=== PATIENT | male | born 1955 | race Caucasian/White ===

== ENCOUNTER 2017-10-24 09:33 | Emergency (ER) | payer BC ==
[2017-10-24 09:43] VITALS: BP 161/90
[2017-10-24] MEDS ORDERED: Sodium Chloride 0.9% 10 ML Syringe FLUSH PRN (09:55)
--- NOTE | 2017-10-24 10:04 | EDM.PDOC ---
ED HPI GENERAL MEDICAL PROBLEM - General Chief Complaint: Chest Pain Stated Complaint: Chest pain Time Seen by Provider: 10/24/17 09:43 Source of Information: Reports: Patient, RN Notes Reviewed History Limitations: Reports: No Limitations - History of Present Illness INITIAL COMMENTS - FREE TEXT/NARRATIVE: 62 year old male presents to the ED with complaints of left sided chest pain. He awoke around 5am with the pain. The pain did not wake him up. He said the pain was mild when he awakened. He took 1 baby aspirin and said the symptoms resolved in about 30-45 minutes. About an hour ago the symptoms returned and are more severe. He took an additional baby aspirin with no improvement. The pain is located to his left, anteriorlateral chest wall and does not radiate. He has no associated diaphoresis, nausea, vomiting. The pain is worse with deep breathing. The pain is not reproducible with palpation. No identifiable aggravating or alleviating factors. Denies SOB, cough, or dyspnea with exertion. He reports cold symptoms a week ago with mild cough. No notable fevers. He has chronic swelling to his ankles and feet. He says this has improved as of recently. He denies unilateral or bilateral calf pain, swelling, erythema, or pain. He denies history of blood clots. He is not on any blood thinners. He denies cardiac history. He denies history of PR. He denies smoking history. He has a history of hypertension but was taken off BP meds and BP has been running in the 130s/80s. He denies history of high cholesterol. He is not a diabetic. 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 He is currently undergoing treatment. He had radiation about 1 month ago and was treated with dexamethasone for the brain lesion. Denies immediate family history of PR or stroke. 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 [No Known Home Meds] 10/24/17 [History] Past Medical History Cardiovascular History: Reports: Hypertension Respiratory History: Reports: Bronchitis, Recurrent Gastrointestinal History: Reports: Hemorrhoids Genitourinary History: Reports: Other (See Below) Other Genitourinary History: LEFT KIDNEY REMOVED DUE TO CANCER Oncologic (Cancer) History: Reports: Renal - Past Surgical History HEENT Surgical History: Reports: LASIK Male Surgical History: Reports: Nephrectomy (Left) Social & Family History - Family History Other Cardiac Family History: [place] - alive with HTN Other Family History: FA - of prostate cancer Other Oncologic Family History: FA - of bladder cancer - Tobacco Use Smoking Status *Q: Never Smoker - Recreational Drug Use Recreational Drug Use: No - Living Situation & Occupation Living situation: Reports: with Family Occupation: Employed ED ROS GENERAL - Review of Systems Review Of Systems: See Below Constitutional: Reports: No Symptoms. Denies: Fever, Chills, Diaphoresis Respiratory: Reports: Pleuritic Chest Pain. Denies: Shortness of Breath, Cough , Sputum, Hemoptysis Cardiovascular: Reports: Chest Pain, Edema. Denies: Blood Pressure Problem, Dyspnea on Exertion, Lightheadedness, Syncope GI/Abdominal: Denies: Abdominal Pain, Diarrhea, Nausea, Vomiting Neurological: Reports: No Symptoms. Denies: Headache ED EXAM, GENERAL - Physical Exam Exam: See Below Exam Limited By: No Limitations General Appearance: Alert, No Apparent Distress, Anxious, Obese Respiratory/Chest: No Respiratory Distress, No Accessory Muscle Use, Chest Non- Tender, Decreased Breath Sounds. No: Crackles, Rales, Rhonchi, Wheezing, Stridor Cardiovascular: Normal Peripheral Pulses, Regular Rate, Rhythm, No Murmur, Other (2-3+ edema to bilateral ankles and feet. ) GI/Abdominal: Normal Bowel Sounds, Soft, Non-Tender, No Distention, No Abnormal Bruit Extremities: Pedal Edema (2-3+ bilateral ankles and feet ), Other (no pain, erythema or swelling to bilateral calf. Lower extremities are symmetrical ). No : Barrera's Sign, Increased Warmth, Redness Neurological: Alert, Oriented, Normal Cognition Skin Exam: Warm, Dry, Intact EKG INTERPRETATION EKG Date: 10/24/17 Time: 09:40 Rhythm: NSR Rate (Beats/Min): 97 Cost: Normal P-Wave: Present QRS: Normal ST-T: Normal QT: Normal EKG Interpretation Comments: EKG read by Dr. Burt. NSR. No evidence of acute ischemia or arrhythmia Course - Vital Signs Last Recorded V/S: Last Vital Signs Temp 97.0 F 10/24/17 09:39 Pulse 92 10/24/17 12:17 Resp 18 10/24/17 09:39 BP 161/90 H 10/24/17 09:39 Pulse Ox 97 10/24/17 12:17 - Orders/Labs/Meds Orders: Active Orders 24 hr Category Date Time Status Cardiac Monitoring [RC] . DIRECTED Care 10/24/17 09:55 Active Orthostatic Vital Signs [RC] ASDIRECTED Care 10/24/17 11:35 Active Peripheral IV Care [RC] . DIRECTED Care 10/24/17 09:56 Active CXR [Chest 1V Frontal] [CR] Stat Exams 10/24/17 10:00 Taken Chest PE [Ang Chest] [CT] Stat Exams 10/24/17 10:23 Taken Aspirin Med 10/25/17 09:00 Active 162 mg PO DAILY Sodium Chloride 0.9% [Normal Saline] 100 ml Med 10/24/17 11:00 Active IV ASDIRECTED Sodium Chloride 0.9% [Saline Flush] Med 10/24/17 09:55 Active 10 ml FLUSH ASDIRECTED PRN Peripheral IV Insertion Adult [OM.PC] Stat Oth 10/24/17 09:55 Ordered Medication Orders Aspirin (Aspirin) 162 mg PO DAILY [facility] Last Admin: 10/24/17 10:28 Dose: 162 mg Sodium Chloride (Normal Saline) 100 mls @ 60 mls/hr IV ASDIRECTED FLOWER Last Admin: 10/24/17 11:08 Dose: 60 mls/hr Sodium Chloride (Saline Flush) 10 ml FLUSH ASDIRECTED PRN PRN Reason: Keep Vein Open Last Admin: 10/24/17 10:28 Dose: 10 ml Labs: Laboratory Tests 10/24/17 10/24/17 10/24/17 Range/Units 09:50 09:50 09:50 WBC 5.24 (4.23-9.07) K/mm3 RBC 3.84 L (4.63-6.08) M/mm3 Hgb 11.3 L (13.7-17.5) gm/L Hct 34.2 L (40.1-51.0) % MCV 89.1 (79.0-92.2) fl MCH 29.4 (25.7-32.2) pg MCHC 33.0 (32.2-35.5) g/dl RDW Std Deviation 46.1 H (35.1-43.9) fL Plt Count 343 H (163-337) K/mm3 MPV 8.6 L (9.4-12.3) fl Neutrophils % (Manual) 67 H (40-60) % Band Neutrophils % 1 (0-10) % Lymphocytes % (Manual) 18 L (20-40) % Atypical Lymphs % 0 % Monocytes % (Manual) 12 H (2-10) % Eosinophils % (Manual) 2 (0.8-7.0) % Basophils % (Manual) 0 L (0.2-1.2) Platelet Estimate Adequate RBC Morph Comment Normal D-Dimer, Quantitative 1.89 H (0.19-0.59) mg/L Sodium 145 (136-145) mEq/L Potassium 3.3 L (3.5-5.1) mEq/L Chloride 108 H (98-107) mEq/L Carbon Dioxide 27 (21-32) mEq/L Anion Gap 13.3 (5-15) BUN 18 (7-18) mg/dL Creatinine 1.2 (0.7-1.3) mg/dL Est Cr Clr Drug Dosing 63.83 mL/min Estimated GFR (MDRD) > 60 (>60) mL/min BUN/Creatinine Ratio 15.0 (14-18) Glucose 165 H (80-115) mg/dL Calcium 8.9 (8.5-10.1) mg/dL Total Bilirubin 0.4 (0.2-1.0) mg/dL AST 22 (15-37) U/L ALT 26 (16-63) U/L Alkaline Phosphatase 66 (46-116) U/L Troponin I < 0.017 (0.00-0.056) ng/mL C-Reactive Protein < 0.2 (<1.0) mg/dL Total Protein 6.7 (6.4-8.2) g/dl Albumin 2.9 L (3.4-5.0) g/dl Globulin 3.8 gm/dL Albumin/Globulin Ratio 0.8 L (1-2) 11/25/17 Range/Units 13:05 WBC (4.23-9.07) K/mm3 RBC (4.63-6.08) M/mm3 Hgb (13.7-17.5) gm/L Hct (40.1-51.0) % MCV (79.0-92.2) fl MCH (25.7-32.2) pg MCHC (32.2-35.5) g/dl RDW Std Deviation (35.1-43.9) fL Plt Count (163-337) K/mm3 MPV (9.4-12.3) fl Neutrophils % (Manual) (40-60) % Band Neutrophils % (0-10) % Lymphocytes % (Manual) (20-40) % Atypical Lymphs % % Monocytes % (Manual) (2-10) % Eosinophils % (Manual) (0.8-7.0) % Basophils % (Manual) (0.2-1.2) Platelet Estimate RBC Morph Comment D-Dimer, Quantitative (0.19-0.59) mg/L Sodium (136-145) mEq/L Potassium (3.5-5.1) mEq/L Chloride (98-107) mEq/L Carbon Dioxide (21-32) mEq/L Anion Gap (5-15) BUN (7-18) mg/dL Creatinine (0.7-1.3) mg/dL Est Cr Clr Drug Dosing mL/min Estimated GFR (MDRD) (>60) mL/min BUN/Creatinine Ratio (14-18) Glucose (80-115) mg/dL Calcium (8.5-10.1) mg/dL Total Bilirubin (0.2-1.0) mg/dL AST (15-37) U/L ALT (16-63) U/L Alkaline Phosphatase (46-116) U/L Troponin I < 0.017 (0.00-0.056) ng/mL C-Reactive Protein (<1.0) mg/dL Total Protein (6.4-8.2) g/dl Albumin (3.4-5.0) g/dl Globulin gm/dL Albumin/Globulin Ratio (1-2) Meds: Medications Generic Name Dose Route Start Last Admin Trade Name Freq PRN Reason Stop Dose Admin Aspirin 162 mg 10/25/17 09:00 10/24/17 10:28 Aspirin PO 162 mg DAILY FLOWER Administration Sodium Chloride 100 mls @ 60 mls/hr 10/24/17 11:00 10/24/17 11:08 Normal Saline IV 60 mls/hr ASDIRECTED FLOWER Administration Sodium Chloride 10 ml 10/24/17 09:55 10/24/17 10:28 Saline Flush FLUSH 10 ml ASDIRECTED PRN Administration Keep Vein Open Discontinued Medications Generic Name Dose Route Start Last Admin Trade Name Lino PRN Reason Stop Dose Admin Aspirin Confirm 10/24/17 10:14 10/24/17 10:28 Aspirin Administered 10/24/17 10:15 Not Given Dose 162 mg .ROUTE .STK-MED ONE Iopamidol 100 ml 10/24/17 10:51 10/24/17 11:08 Isovue-370 (76%) IVPUSH 10/24/17 10:52 100 ml ONETIME ONE Administration Sodium Chloride 10 ml 10/24/17 10:51 10/24/17 11:08 Saline Flush FLUSH 10/24/17 10:52 10 ml ONETIME ONE Administration - Re-Assessments/Exams Free Text/Narrative Re-Assessment/Exam: CBC reveals WBC of 5,000 and no bandemia. H&H 11 and 34. CRP WNL. CMP: Na 145, K 3.3, Cl 108, BUN 18, creatinine 1.2, glucose 165. LFTs WNL. Initial troponin WNL. EKG normal. 10/24/17 10:25 D-dimer came back positive, CT angio ordered to evaluate for PE. 1200 CT angio read by [facility], impression: 1. No pulmonary thromboembolic disease 2. Hematogenous pulmonary metastases 3. A couple of small areas of pneumonitis are probably present 4. Liver and adrenal metastases are probably present. Discussed with Dr. Burt. She feels the pneumonitis is likely related to the mets rather than infectious as the patient has no clinical findings (fever, cough, tachycardia) to indicate infection. She does not recommend treating with antibiotics. She recommends repeat 3 hour troponin and discharge if WNL. 10/24/17 14:10 3 hour troponin is WNL. Patient notified of results. He was educated on return precautions. He is to f/u with his PCP early next week and his Oncologist as scheduled. Will have his records from today sent to both providers. 10/24/17 14:34 Departure - Departure Time of Disposition: 14:14 Disposition: Home, Self-Care 01 Condition: Good Clinical Impression: Pneumonitis Chest pain Qualifiers: Chest pain type: unspecified Qualified Code(s): R07.9 - Chest pain, unspecified Renal cell carcinoma Qualifiers: Laterality: unspecified laterality Qualified Code(s): C64.9 - Malignant neoplasm of unspecified kidney, except renal pelvis Instructions: Pneumonitis, Chest Pain Observation Referrals: Aliya Russell, CLINICAL CYTOPATHOLOGIST [Primary Care Provider] - Forms: ED Department Discharge Additional Instructions: Tylenol or Ibuprofen as needed for pain Rest Return to ER with new or worsening symptoms or with additional concerns Follow-up with Renetta Russell in [place] early next week for recheck Follow-up with your Oncologist as scheduled - My Orders Last 24 Hours: My Active Orders 10/24/17 09:55 Cardiac Monitoring [RC] . DIRECTED Sodium Chloride 0.9% [Saline Flush] 10 ml FLUSH ASDIRECTED PRN Peripheral IV Insertion Adult [OM.PC] Stat 10/24/17 09:56 Peripheral IV Care [RC] . DIRECTED 10/24/17 10:00 CXR [Chest 1V Frontal] [CR] Stat 10/24/17 10:23 Chest PE [Ang Chest] [CT] Stat 10/24/17 11:00 Sodium Chloride 0.9% [Normal Saline] 100 ml IV ASDIRECTED 10/24/17 11:35 Orthostatic Vital Signs [RC] ASDIRECTED 10/25/17 09:00 Aspirin 162 mg PO DAILY - Assessment/Plan Last 24 Hours: My Active Orders 10/24/17 09:55 Cardiac Monitoring [RC] . DIRECTED Sodium Chloride 0.9% [Saline Flush] 10 ml FLUSH ASDIRECTED PRN Peripheral IV Insertion Adult [OM.PC] Stat 10/24/17 09:56 Peripheral IV Care [RC] . DIRECTED 10/24/17 10:00 CXR [Chest 1V Frontal] [CR] Stat 10/24/17 10:23 Chest PE [Ang Chest] [CT] Stat 10/24/17 11:00 Sodium Chloride 0.9% [Normal Saline] 100 ml IV ASDIRECTED 10/24/17 11:35 Orthostatic Vital Signs [RC] ASDIRECTED 10/25/17 09:00 Aspirin 162 mg PO DAILY
[2017-10-24] MEDS ORDERED: Aspirin 81 MG Tab.Chew ONE (10:14)
[2017-10-24] MEDS ORDERED: Iopamidol 755 Mg/ML 100 ML Bottle IVPUSH ONE (10:51)
[2017-10-24] MEDS ORDERED: Sodium Chloride 0.9% 10 ML Syringe FLUSH ONE (10:51)
[2017-10-24] MEDS ORDERED: Sodium Chloride 0.9% 100 ML IV SCH (11:00)
[2017-10-25] MEDS ORDERED: Aspirin 81 MG Tab.Chew PO SCH (09:00)
--- NOTE | 2017-10-26 16:32 | CT ---
CT chest Technique: Multiple axial sections through the chest were obtained. Study performed as a pulmonary angiogram protocol. Comparison: Prior chest x-ray performed on the same day (10:01 AM). Prior chest CT of 11/28/10. Previous abdominal and pelvic CT exam of 11/30/15 is available. Findings: No findings of pulmonary embolism are seen. Multiple pulmonary nodules are seen adjacent to both hilum. Findings are highly suspicious for hematogenous metastasis. Slight atelectasis is seen posteriorly within both lung bases. Mild parenchymal density within the left base and left upper lung are seen which could represent small areas of pneumonia or scarring. Small lymph nodes are seen within the right hilum and within the paratracheal regions which are felt to be within normal limits at this time. Low-density lesions are seen within the liver as well as a hyperenhancing lesion within the left lobe of the liver. Low density lesions are suspicious for liver metastatic disease. Several small soft tissue nodules adjacent to the spleen are seen compatible with accessory splenic tissue. Partially visualized left adrenal mass is noted. Soft tissue nodule identified next to the right kidney measuring 1.5 cm. Small left-sided pleural effusion is seen. Degenerative spurring is noted within the spine. Impression: 1. Multiple nodular densities around both hilar regions compatible with hematogenous metastasis. These are an interval change from prior chest CT. No findings of pulmonary embolism are seen. 2. Several small mediastinal as well as right hilar lymph node which measure within normal limits at this time. 3. Several low density lesions which appear stable from prior CT abdomen and pelvis exam likely representing stable liver metastasis. Hyperenhancing lesion seen within the upper left lobe which is not identified on prior CT exam. This finding may represent a hyperenhancing metastasis although flash filling of a hemangioma is also within the differential. 4. Left adrenal mass which is an interval change from previous exam. 5. 1.5 cm soft tissue nodule next to the right kidney most likely representing metastatic lesion which is not seen on prior study. 6. Patchy increased density within the left base and left upper lung either due to scarring or possibly minimal areas of pneumonia if patient has infectious symptoms. Other incidental findings. Diagnostic code #9 I agree with preliminary report issued by [facility] ([facility] report finalized on 10/24/17, 12:50 PM Central Time)
--- NOTE | 2017-10-26 16:33 | CR ---
Chest: Portable view of the chest was obtained. Comparison: Previous chest x-ray of 07/18/14. Heart size and mediastinum are normal. Lungs are clear. Bony structures show degenerative spurring within the spine. Impression: 1. Nothing acute is identified on portable chest x-ray. Diagnostic code #1
== END 2017-10-24 14:30 | disposition home or self-care (01) ==
LOC: JD.ED 09:33
DX: J18.9 Pneumonia, unspecified organism (principal); C64.9 Malignant neoplasm of unspecified kidney, except renal pelvis; R07.9 Chest pain, unspecified; I10 Essential (primary) hypertension; Z88.0 Allergy status to penicillin
CPT/HCPCS: 36415; 71010; 71275; 80053; 84484; 85025; 85379; 86140; 99285; A9270; J7030; J7050; Q9967; 93010; 99284

== ENCOUNTER 2018-01-07 14:17 | Emergency (ER) | payer BC ==
[2018-01-07 14:55] VITALS: BP 173/96
[2018-01-07] MEDS ORDERED: Sodium Chloride 0.9% 10 ML Syringe FLUSH PRN (17:12)
[2018-01-07] MEDS ORDERED: Sodium Chloride 0.9% 1,000 ML IV ONE (17:13)
[2018-01-07] MEDS ORDERED: Iopamidol 612 MG/ML 50 ML SDV IVPUSH ONE (17:22)
[2018-01-07] MEDS: Sodium Chloride 0.9% 10 ML Syringe FLUSH PRN ×2 (17:43→17:50)
[2018-01-07] MEDS ORDERED: HYDROmorphone 1 MG/ML Syringe IVPUSH ONE (17:54)
--- NOTE | 2018-01-07 18:31 | CT ---
Head CT (without and with contrast) Technique: Multiple axial sections through the brain were obtained. Intravenous contrast was not utilized. Findings: Diffuse low density is identified within the left occipital lobe and posterior left parietal lobe. Uncertain if this represents cytotoxic edema or infarct. Infarct seems a little less likely as there is some cortical sparing being seen. Edema is also felt more likely as there is mild midline shift being seen by about 9 mm. No intracranial hemorrhage is seen. Sulci are slightly effaced over the left convexity due to the edema. No abnormal enhancement is identified. Impression: 1. Low density within the left posterior parietal and occipital region. As mentioned above, this is most likely due to cytotoxic edema rather than infarct as there is areas of cortical sparing. No abnormal enhancement is seen which is somewhat unexpected. Midline shift is seen by about 9 mm. MRI with contrast is suggested to further evaluate as intracranial metastatic disease needs to be excluded. 2. No evidence of intracranial hemorrhage. Diagnostic code #9
--- NOTE | 2018-01-07 18:37 | EDM.PDOC ---
ED HPI GENERAL MEDICAL PROBLEM - General Chief Complaint: Fever Stated Complaint: VISION ISSUES-R EYE IS WORSE/CHEMO X3DAYS AGO Time Seen by Provider: 01/07/18 16:35 Source of Information: Reports: Patient History Limitations: Reports: No Limitations - History of Present Illness INITIAL COMMENTS - FREE TEXT/NARRATIVE: 62-year-old male presents for evaluation and treatment of fevers, headaches, body aches and decreased vision to the right eye. Patient reports he the past medical history renal cell carcinoma. Had an nephrectomy in 2009. Is currently seeing Dr. Alonso and Dr. Glynn in [place] for chemotherapy. He started on chemotherapy about 3 weeks ago. Currently on Vervoy and Opdivo. Reports his last chemotherapy was on Thursday. Reports on Thursday he developed decreased vision to the right eye. Is also complaining of some headaches and body aches. He states he had some diarrhea earlier but this has since resolved with Imodium. Per his daughter he is more confused than normal. Patient also reports he feels more confused than normal. He does not wear glasses or contacts. Patient's reports that he did have a brain tumor. Is unclear if this was metastasis or primary brain tumor. He was seen in [place] for what sounds like radiation. - Related Data Allergies Allergy/AdvReac Type Severity Reaction Status Date / Time Penicillins Allergy Unknown Cannot Verified 01/07/18 14:55 Remember Home Meds: Home Meds Aspirin [Adult Low Dose Aspirin EC] 81 mg PO DAILY 01/07/18 [History] Lisinopril [Lisinopril] 10 mg PO DAILY 01/07/18 [History] Propranolol HCl 60 mg PO BID 01/07/18 [History] SUMAtriptan [Imitrex] 50 mg PO DAILY PRN 01/07/18 [History] Past Medical History Cardiovascular History: Reports: Hypertension Respiratory History: Reports: Bronchitis, Recurrent Gastrointestinal History: Reports: Hemorrhoids Genitourinary History: Reports: Other (See Below) Other Genitourinary History: LEFT KIDNEY REMOVED DUE TO CANCER Oncologic (Cancer) History: Reports: Renal - Past Surgical History HEENT Surgical History: Reports: LASIK Male Surgical History: Reports: Nephrectomy Social & Family History - Family History Other Cardiac Family History: [place] - alive with HTN Other Family History: FA - of prostate cancer Other Oncologic Family History: FA - of bladder cancer - Tobacco Use Smoking Status *Q: Unknown Ever Smoked - Recreational Drug Use Recreational Drug Use: No - Living Situation & Occupation Living situation: Reports: with Family Occupation: Employed ED ROS ENT - Review of Systems Review Of Systems: See Below Constitutional: Reports: Fever HEENT: Reports: Vision Change (decreased vision right eye) Respiratory: Denies: Shortness of Breath, Cough Cardiovascular: Denies: Chest Pain GI/Abdominal: Denies: Abdominal Pain, Nausea, Vomiting Neurological: Reports: Confusion, Headache. Denies: Syncope ED EXAM, ENT - Physical Exam Exam: See Below Exam Limited By: No Limitations General Appearance: Alert, WD/WN, No Apparent Distress Eye Exam: Bilateral Eye: Normal Inspection Ears: Normal External Exam Nose: Normal Inspection Mouth/Throat: Normal Inspection, Normal Gums, Normal Lips, Normal Oropharynx, Normal Teeth Respiratory/Chest: No Respiratory Distress, Lungs Clear, Normal Breath Sounds Cardiovascular: Normal Peripheral Pulses, Regular Rate, Rhythm, No Murmur GI/Abdominal: Soft, Non-Tender Neurological: Alert, Oriented, Confused, Other (human resources services specialist 5/5 bilaterally, plantarflexion 5/5 bilaterally; CN testing cannot tract with right eye once crosses the midline, reports cannot see fingers out of the right eye; unable to access CN 3 and 4,6 due to decreased vision; CN 2,5,7-12 intact) Psychiatric: Normal Affect, Normal Mood Skin: Warm, Dry, Normal Color Course - Vital Signs Last Recorded V/S: Last Vital Signs Temp 35.9 C 01/07/18 14:52 Pulse 82 01/07/18 14:52 Resp 18 01/07/18 14:52 BP 173/96 H 01/07/18 14:52 Pulse Ox 99 01/07/18 14:52 - Orders/Labs/Meds Orders: Active Orders 24 hr Category Date Time Status Cardiac Monitoring [RC] . DIRECTED Care 01/07/18 17:56 Active EKG Documentation Completion [RC] ASDIRECTED Care 01/07/18 17:54 Active Peripheral IV Care [RC] . DIRECTED Care 01/07/18 17:12 Active Vision Test [RC] ASDIRECTED Care 01/07/18 17:12 Active Chest 1V Frontal [CR] Stat Exams 01/07/18 18:39 Taken Sodium Chloride 0.9% [Saline Flush] Med 01/07/18 17:12 Active 10 ml FLUSH ASDIRECTED PRN Sodium Chloride 0.9% [Saline Flush] Med 01/07/18 17:22 Active 10 ml FLUSH ONETIME PRN Peripheral IV Insertion Adult [OM.PC] Routine Oth 01/07/18 17:12 Ordered EKG 12 Lead [EK] Stat Ther 01/07/18 17:54 Ordered Medication Orders Sodium Chloride (Saline Flush) 10 ml FLUSH ASDIRECTED PRN PRN Reason: Keep Vein Open Last Admin: 01/07/18 17:50 Dose: 10 ml Sodium Chloride (Saline Flush) 10 ml FLUSH ONETIME PRN PRN Reason: IV FLUSH Last Admin: 01/07/18 17:50 Dose: 10 ml Admin: 01/07/18 17:43 Dose: 10 ml Labs: Laboratory Tests 01/07/18 01/07/18 01/07/18 Range/Units 15:30 15:30 15:30 WBC 7.13 (4.23-9.07) K/mm3 RBC 4.96 (4.63-6.08) M/mm3 Hgb 14.2 (13.7-17.5) gm/L Hct 41.0 (40.1-51.0) % MCV 82.7 (79.0-92.2) fl MCH 28.6 (25.7-32.2) pg MCHC 34.6 (32.2-35.5) g/dl RDW Std Deviation 37.7 (35.1-43.9) fL Plt Count 172 (163-337) K/mm3 MPV 10.0 (9.4-12.3) fl Neutrophils % (Manual) 73 H (40-60) % Band Neutrophils % 1 (0-10) % Lymphocytes % (Manual) 14 L (20-40) % Atypical Lymphs % 0 % Monocytes % (Manual) 7 (2-10) % Eosinophils % (Manual) 5 (0.8-7.0) % Basophils % (Manual) 0 L (0.2-1.2) Platelet Estimate Adequate RBC Morph Comment Normal PT 11.0 (8.0-13.0) SECONDS INR 1.01 APTT 24 (22-36) SECONDS Sodium 138 (136-145) mEq/L Potassium 4.3 (3.5-5.1) mEq/L Chloride 104 (98-107) mEq/L Carbon Dioxide 22 (21-32) mEq/L Anion Gap 16.3 H (5-15) BUN 16 (7-18) mg/dL Creatinine 1.1 (0.7-1.3) mg/dL Est Cr Clr Drug Dosing 69.63 mL/min Estimated GFR (MDRD) > 60 (>60) mL/min BUN/Creatinine Ratio 14.5 (14-18) Glucose 109 (80-115) mg/dL Calcium 8.9 (8.5-10.1) mg/dL Total Bilirubin 0.3 (0.2-1.0) mg/dL AST 25 (15-37) U/L ALT 28 (16-63) U/L Alkaline Phosphatase 66 (46-116) U/L Total Protein 6.9 (6.4-8.2) g/dl Albumin 3.6 (3.4-5.0) g/dl Globulin 3.3 gm/dL Albumin/Globulin Ratio 1.1 (1-2) Meds: Medications Generic Name Dose Route Start Last Admin Trade Name Freq PRN Reason Stop Dose Admin Sodium Chloride 10 ml 01/07/18 17:12 01/07/18 17:50 Saline Flush FLUSH 10 ml ASDIRECTED PRN Administration Keep Vein Open Sodium Chloride 10 ml 01/07/18 17:22 01/07/18 17:50 Saline Flush FLUSH 10 ml ONETIME PRN Administration IV FLUSH Discontinued Medications Generic Name Dose Route Start Last Admin Trade Name Fredarryl PRN Reason Stop Dose Admin Dexamethasone 10 mg 01/07/18 19:11 01/07/18 19:23 Dexamethasone IVPUSH 01/07/18 19:12 10 mg ONETIME ONE Administration Hydromorphone HCl 0.5 mg 01/07/18 17:54 01/07/18 18:00 Dilaudid IVPUSH 01/07/18 17:55 0.5 mg ONETIME ONE Administration Sodium Chloride 1,000 mls @ 999 mls/hr 01/07/18 17:13 01/07/18 17:49 Normal Saline IV 01/07/18 18:13 999 mls/hr ONETIME ONE Administration Iopamidol 50 ml 01/07/18 17:22 01/07/18 17:43 Isovue-300 (61%) IVPUSH 01/07/18 17:23 50 ml ONETIME ONE Administration Propranolol HCl 60 mg 01/07/18 20:35 Inderal La PO 01/07/18 20:36 ONETIME ONE - Radiology Interpretation Free Text/Narrative:: Head CT (without and with contrast) Technique: Multiple axial sections through the brain were obtained. Intravenous contrast was not utilized. Findings: Diffuse low density is identified within the left occipital lobe and posterior left parietal lobe. Uncertain if this represents cytotoxic edema or infarct. Infarct seems a little less likely as there is some cortical sparing being seen. Edema is also felt more likely as there is mild midline shift being seen by about 9 mm. No intracranial hemorrhage is seen. Sulci are slightly effaced over the left convexity due to the edema. No abnormal enhancement is identified. Impression: 1. Low density within the left posterior parietal and occipital region. As mentioned above, this is most likely due to cytotoxic edema rather than infarct as there is areas of cortical sparing. No abnormal enhancement is seen which is somewhat unexpected. Midline shift is seen by about 9 mm. MRI with contrast is suggested to further evaluate as intracranial metastatic disease needs to be excluded. 2. No evidence of intracranial hemorrhage. Chest xray shows no acute intrathoracic process. - Re-Assessments/Exams Free Text/Narrative Re-Assessment/Exam: 01/07/18 20:[address] patient's CT scan returned I gave him 1 mg IV Dilaudid. I contacted [facility] in [place]. I spoke with Dr. Johnson and ER physician Dr. Reyes. Dr. Johnson recommended giving [address] Reyes recommended considering giving antibiotics. Irritable to review his chart. They confirmed that he did have a brin tumor. He was sent to [facility] as there neurosurgeon was unable to do anything more due to the location of the tumor. They were able to find that he was seen at [facility] in [place]. Our ER director came to help me with this transfer as it was very busy at the time. She talked to [facility]. There are on diversion. They also stated that he was only there for a one-time visit and is not really a patient there. They felt that he could be managed as for more like [place]. I called [facility] in [place]. I spoke with Dr. Aguilar, hospitalist as well as neurology and neurosurgery. They feel that this is likely from brain tumor. Recommended giving 10 mg dexamethasone which has been given. Did not feel he needed antibiotics. Agree to accept the patient. Patient will be flown by [facility] to [facility] in [place]. Dr. Aguilar accepting. Departure - Departure Time of Disposition: 21:06 Disposition: DC/Tfer to [facility] 02 Condition: Serious Clinical Impression: Cytotoxic cerebral edema, Midline shift of brain, Vision disturbance, Headache Renal cell carcinoma Qualifiers: Laterality: unspecified laterality Qualified Code(s): C64.9 - Malignant neoplasm of unspecified kidney, except renal pelvis - Discharge Information Referrals: Aliya Russell P[facility] MASTER [Primary Care Provider] - Forms: ED Department Discharge Additional Instructions: Patient will be flown to [facility] [place]. Alas accepting. - My Orders Last 24 Hours: My Active Orders 01/07/18 17:12 Peripheral IV Care [RC] . DIRECTED Vision Test [RC] ASDIRECTED Sodium Chloride 0.9% [Saline Flush] 10 ml FLUSH ASDIRECTED PRN Peripheral IV Insertion Adult [OM.PC] Routine 01/07/18 17:22 Sodium Chloride 0.9% [Saline Flush] 10 ml FLUSH ONETIME PRN 01/07/18 17:54 EKG Documentation Completion [RC] ASDIRECTED EKG 12 Lead [EK] Stat 01/07/18 17:56 Cardiac Monitoring [RC] . DIRECTED 01/07/18 18:39 Chest 1V Frontal [CR] Stat - Assessment/Plan Last 24 Hours: My Active Orders 01/07/18 17:12 Peripheral IV Care [RC] . DIRECTED Vision Test [RC] ASDIRECTED Sodium Chloride 0.9% [Saline Flush] 10 ml FLUSH ASDIRECTED PRN Peripheral IV Insertion Adult [OM.PC] Routine 01/07/18 17:22 Sodium Chloride 0.9% [Saline Flush] 10 ml FLUSH ONETIME PRN 01/07/18 17:54 EKG Documentation Completion [RC] ASDIRECTED EKG 12 Lead [EK] Stat 01/07/18 17:56 Cardiac Monitoring [RC] . DIRECTED 01/07/18 18:39 Chest 1V Frontal [CR] Stat
[2018-01-07] MEDS ORDERED: Dexamethasone 4 MG/ML SDV IVPUSH ONE (19:11)
[2018-01-07] MEDS ORDERED: Propranolol 60 MG Cap.ER PO ONE (20:35)
--- NOTE | 2018-01-08 07:10 | CR ---
Chest: Portable view of the chest was obtained. Comparison: Prior chest x-ray of 10/24/17. Heart size is normal. Tortuous thoracic aorta is seen. Lungs are clear. Bony structures are grossly intact. Impression: 1. Nothing acute is identified on portable chest x-ray. Diagnostic code #1
== END 2018-01-07 21:00 ==
LOC: JD.ED 14:17
DX: G93.6 Cerebral edema (principal); C64.9 Malignant neoplasm of unspecified kidney, except renal pelvis; H53.9 Unspecified visual disturbance; R51 Headache; I10 Essential (primary) hypertension; Z90.5 Acquired absence of kidney; Z79.82 Long term (current) use of aspirin; Z79.899 Other long term (current) drug therapy; Z88.0 Allergy status to penicillin
CPT/HCPCS: 36415; 70470; 71045; 80053; 85025; 85610; 85730; 87804; 93005; 96361; 96374; 96375; 99285; A9270; J1100; J1170; J7040; J7050; Q9967

== ENCOUNTER 2018-05-16 15:18 | Emergency (ER) | payer BC ==
[2018-05-16] MEDS ORDERED: Etomidate 2 MG/ML 20 ML SDV IVPUSH ONE (15:30)
[2018-05-16] MEDS ORDERED: EPINEPHrine 1:10,000 1 MG/10 ML Syringe ONE (15:30)
[2018-05-16 15:34] VITALS: BP 185/93
--- NOTE | 2018-05-16 15:41 | EDM.PDOC ---
ED HPI GENERAL MEDICAL PROBLEM - General Chief Complaint: Neurological Problem Stated Complaint: [facility] Time Seen by Provider: 05/16/18 15:22 Source of Information: Reports: Patient, Family History Limitations: Reports: Altered Mental Status (Daughter and .), Other (Patient is experiencing expressive aphasia and you can tell that he's taking a long time to try to process information.) - History of Present Illness INITIAL COMMENTS - FREE TEXT/NARRATIVE: 62-year-old male from [place] presented to the ED per ambulance after gradual onset of inability to speak i.e. expressive aphasia and garbled speech starting about noon today. He also could walk up until noon today but is no longer able to do so. Patient had a left parietal brain tumor resected in February of this year. He had recovered a good deal of his strength and balance after surgery. He was placed on Eliquis one week ago because of a left lower extremity DVT. He has had no falls or head injuries. He has had no nausea or vomiting. Apparently he developed a headache 2 and half days ago which has gradually increased in intensity. No vomiting reported. Onset: Today Onset Date: 05/16/18 Onset Time: 12:00 Duration: Hour(s): Location: Reports: Other (Expressive aphasia difficulty speaking right-sided weakness no longer able to walk.) Quality: Reports: Other Severity: Moderate (Constant pressure throbbing headache.) Improves with: Reports: None ( 6 out of 10.) Worsens with: Reports: Movement Context: Reports: Other (Spontaneous occurrence of loss of speech gradually over a period of 2 hours and inability to walk.). Denies: Activity, Lifting, Sick Contact, Trauma Associated Symptoms: Reports: Confusion (He has difficulty with his speech mostly because of expressive aphasia and inability copper hand speech quickly to find the words he wants to say.), Cough, Headaches, Malaise, Other ( Apparently was on antiseizure medications for 30 days after surgery. He never did have a seizure postoperatively.). 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 Headache Pain Score (Numeric/FACES): 6 - Related Data Allergies Allergy/AdvReac Type Severity Reaction Status Date / Time Penicillins Allergy Unknown Cannot Verified 01/07/18 14:55 Remember Home Meds: Home Meds Lisinopril 20 mg PO DAILY 01/07/18 [History] Propranolol HCl 40 mg PO BID 01/07/18 [History] SUMAtriptan [Imitrex] 50 mg PO DAILY PRN 01/07/18 [History] Acetaminophen/oxyCODONE [Percocet 325-5 MG] 1 tab PO Q4H PRN 05/16/18 [History] Apixaban [Eliquis] 5 mg PO BID 05/16/18 [History] Past Medical History Cardiovascular History: Reports: Hypertension Respiratory History: Reports: Bronchitis, Recurrent Gastrointestinal History: Reports: Hemorrhoids Genitourinary History: Reports: Other (See Below) Other Genitourinary History: LEFT KIDNEY REMOVED DUE TO CANCER Neurological History: Reports: Other (See Below) (Brain tumor resected left occipital parietal scalp in February of this year. 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 Therefore this lesion that he had resected from his brain in February is a metastatic lesion. Apparently he was quite ataxic with really bad headache prior to performing the surgery. - Past Surgical History Head Surgeries/Procedures: Reports: Craniotomy (Left parieto-occipital craniotomy performed in February of this year for tumor resection. Surgery was carried out in [place]. Dr. Sharma at [facility]) HEENT Surgical History: Reports: LASIK Male Surgical History: Reports: Nephrectomy Social & Family History - Family History Other Cardiac Family History: [place] - alive with HTN Other Family History: FA - of prostate cancer Other Oncologic Family History: FA - of bladder cancer - Living Situation & Occupation Living situation: Reports: with Family Occupation: Employed ED ROS GENERAL - Review of Systems Review Of Systems: See Below Constitutional: Reports: Weakness, Fatigue, Decreased Appetite. Denies: Fever, Chills, Malaise HEENT: Reports: Other Respiratory: Reports: No Symptoms (Has lost a good deal of vision in his right eye since brain tumor was resected.) Cardiovascular: Reports: No Symptoms Endocrine: Reports: No Symptoms GI/Abdominal: Reports: No Symptoms : Reports: Frequency, Other (Known BPH.) Musculoskeletal: Reports: Other (Was walking up until noon today.) Skin: Reports: No Symptoms ( He is ataxic but better than he was before he had surgery.) Neurological: Reports: Headache (2 and half days), Trouble Speaking, Difficulty Walking, Change in Speech, Other (He developed an expressive aphasia and you can tell that he's taking a long time to process the information). Denies: Seizure (Unable to walk since noon today.), Syncope, Tingling Psychiatric: Reports: No Symptoms Hematologic/Lymphatic: Reports: Other (Apparently identified of a DVT in his left calf one week ago and was started on Eliquis for this.) Immunologic: Reports: No Symptoms ED EXAM, NEURO - Physical Exam Exam: See Below Exam Limited By: Physical Impairment (Expressive aphasia and difficulty understanding speech.) General Appearance: Alert, Other (You can tell that he's frustrated by trying to find the right words to say. He prefers to stay quiet. Daughter and answer most of the questions.) Eye Exam: Bilateral Eye: Vision Changes (Patient has lost a good deal of his vision in his right eye since tumor) Throat/Mouth: Normal Inspection, Normal Lips, Normal Teeth, Normal Oropharynx Head Exam: Atraumatic, Normocephalic, Other Neck: Normal Inspection (Craniotomy palpable left occipital parietal scalp), Supple, Non-Tender, Full Range of Motion. No: Lymphadenopathy (L), Lymphadenopathy (R) Respiratory/Chest: No Respiratory Distress, Lungs Clear, Normal Breath Sounds Cardiovascular: Normal Peripheral Pulses, Regular Rate, Rhythm, No Edema, No Murmur, Other GI/Abdominal: Normal Bowel Sounds, Soft, Non-Tender, No Organomegaly, Other Neurological: Difficulty Walking (Currently unable to walk.), Other (Rack Puncher strength appeared to be equal bilaterally. He has mild sustained clonus on the right side. Babinski was also upgoing on the right side. He could not perform a good deal of the cranial nerve exams. He can close his eyes tightly. When he smiled he has some mild right facial weakness. Unclear if this was pre-existing) . No: CN II-XII Intact, Normal Gait, Normal Reflexes DTR: 2+: Bicep (R), Patella (R), 3+: Bicep (L), Patella (L) Extremities: Other (Appears to have mild weakness on the right leg. Biceps appeared to be intact.). No: Normal Range of Motion Psychiatric: Other Skin Exam: Warm (Patient doesn't really express much in the way of affect.), Dry , Intact, Normal Color, No Rash ED NEURO PROCEDURES - Endotracheal Intubation ET Intubation Indication: Airway Protection Preparation: Suction, Balloon Tested, BVM Set Up, Difficult Airway Equip Airway Assessment: Obese, Large Tongue, Other Pre-Oxygenation: Assisted with BVM (Letter neural cavity due to biting his tongue from seizure.), 100% FiO2 Anesthesia Meds: Etomidate (0.3 mg/kg. 35 mg in total), Lidocaine (150 mg), Vecuronium (10 mg) Placement: Orotracheal Cords Visualized: Yes, Grade 3 ETT Size In mm: 8 Confirmed By: CO2 Indicator, Bilateral Breath Sounds, Chest Xray Tube Secured By: By RT ED CENTRAL LINE INSERTION - Central Line Insertion Central Line Indication: IV access Site: subclavian (R) Prep: CDC/MBT Guidelines, Sterile Drapes, Betadine, Chlorhexidine Lumen: triple Gauge: 7Fr Ultrasound guided: No Guidewire and dilator removed intact: Yes Complications: No Secured with suture: Yes Post placement confirmation: CXR, all ports aspirated, all ports flushed CXR post-procedure: no pneumothorax Dressing applied: by provider, op-site dressing EKG INTERPRETATION EKG Date: 05/16/18 Time: 17:05 Rhythm: NSR Rate (Beats/Min): 80 [place]: Normal P-Wave: Present QRS: Normal ST-T: Other (Repolarization abnormality with mild ST segment depression V3 to V6 as well as one in aVL. Possible ischemia evident.) QT: Prolonged EKG Interpretation Comments: CT of the brain reveals low-density lesion identified posteriorly within the left parietal-occipital region. Rounded area of low density is seen which is an interval change from prior exam measuring 4.4 cm. Interval craniotomy is also appreciated. There is mild midline shift is seen which appears less prominent than on prior study. Midline shift measures approximately 4 mm. No other abnormal parenchymal densities are identified no evidence of intracranial hemorrhage. Mild mucosal thickening is seen within the maxillary sinuses which is felt to be chronic. Course - Vital Signs Last Recorded V/S: Last Vital Signs Temp 36.6 C 05/16/18 15:23 Pulse 62 06/17/18 15:23 Resp 12 05/16/18 15:23 BP 185/93 H 05/16/18 15:23 Pulse Ox 91 L 05/16/18 15:23 - Orders/Labs/Meds Orders: Active Orders 24 hr Category Date Time Status EKG Documentation Completion [RC] STAT Care 05/16/18 15:46 Active Chest 1V Frontal [CR] Stat Exams 05/16/18 17:08 Taken ABG [BLOOD GAS ARTERIAL] [BG] Stat Lab 05/16/18 17:00 Results Labs: Laboratory Tests 05/16/18 05/16/18 05/16/18 Range/Units 16:30 16:47 16:47 WBC 13.59 H (4.23-9.07) K/mm3 RBC 5.13 (4.63-6.08) M/mm3 Hgb 15.1 (13.7-17.5) gm/L Hct 43.5 (40.1-51.0) % MCV 84.8 (79.0-92.2) fl MCH 29.4 (25.7-32.2) pg MCHC 34.7 (32.2-35.5) g/dl RDW Std Deviation 41.9 (35.1-43.9) fL Plt Count 180 (163-337) K/mm3 MPV 9.8 (9.4-12.3) fl Neutrophils % (Manual) 63 H (40-60) % Band Neutrophils % 0 (0-10) % Lymphocytes % (Manual) 30 (20-40) % Atypical Lymphs % 0 % Monocytes % (Manual) 5 (2-10) % Eosinophils % (Manual) 0 L (0.8-7.0) % Basophils % (Manual) 1 (0.2-1.2) Myelocytes % 1 Nucleated RBCs 1.0 % Platelet Estimate Adequate Plt Morphology Comment Normal RBC Morph Comment Not Reportable PT 11.4 (9.5-12.1) SECONDS INR 1.05 APTT (24-31) SECONDS Puncture Site ABG pH (7.35-7.45) ABG pCO2 (35.0-45.0) mmHg ABG pO2 (80.0-100.0) mmHg ABG HCO3 (22.0-26.0) meq/L ABG O2 Saturation (96.0-97.0) % ABG Base Excess (-2-2.0) Pranay Test A-a Gradient mmHg O2 Delivery Device FiO2 (21.00-100.00) % Tidal Volume cc PEEP cmH20 Sodium 143 (136-145) mEq/L Potassium 4.3 (3.5-5.1) mEq/L Chloride 107 (98-107) mEq/L Carbon Dioxide 24 (21-32) mEq/L Anion Gap 16.3 H (5-15) BUN 12 (7-18) mg/dL Creatinine 1.5 H (0.7-1.3) mg/dL Est Cr Clr Drug Dosing 51.06 mL/min Estimated GFR (MDRD) 47 (>60) mL/min BUN/Creatinine Ratio 8.0 L (14-18) Glucose 128 H (80-115) mg/dL Calcium 8.9 (8.5-10.1) mg/dL Total Bilirubin 0.8 (0.2-1.0) mg/dL AST 43 H (15-37) U/L ALT 48 (16-63) U/L Alkaline Phosphatase 78 (46-116) U/L Total Protein 6.9 (6.4-8.2) g/dl Albumin 3.6 (3.4-5.0) g/dl Globulin 3.3 gm/dL Albumin/Globulin Ratio 1.1 (1-2) 18 05/16/18 Range/Units 16:47 17:00 WBC (4.23-9.07) K/mm3 RBC (4.63-6.08) M/mm3 Hgb (13.7-17.5) gm/L Hct (40.1-51.0) % MCV (79.0-92.2) fl MCH (25.7-32.2) pg MCHC (32.2-35.5) g/dl RDW Std Deviation (35.1-43.9) fL Plt Count (163-337) K/mm3 MPV (9.4-12.3) fl Neutrophils % (Manual) (40-60) % Band Neutrophils % (0-10) % Lymphocytes % (Manual) (20-40) % Atypical Lymphs % % Monocytes % (Manual) (2-10) % Eosinophils % (Manual) (0.8-7.0) % Basophils % (Manual) (0.2-1.2) Myelocytes % Nucleated RBCs % Platelet Estimate Plt Morphology Comment RBC Morph Comment PT (9.5-12.1) SECONDS INR APTT 25 (24-31) SECONDS Puncture Site Rt radial ABG pH 7.34 L (7.35-7.45) ABG pCO2 45.4 H (35.0-45.0) mmHg ABG pO2 79.0 L (80.0-100.0) mmHg ABG HCO3 24.0 (22.0-26.0) meq/L ABG O2 Saturation 95.2 L (96.0-97.0) % ABG Base Excess -1.5 (-2-2.0) Pranay Test Positive A-a Gradient 504 mmHg O2 Delivery Device Ventilator FiO2 100.00 (21.00-100.00) % Tidal Volume 600.0 cc PEEP 5.0 cmH20 Sodium (136-145) mEq/L Potassium (3.5-5.1) mEq/L Chloride (98-107) mEq/L Carbon Dioxide (21-32) mEq/L Anion Gap (5-15) BUN (7-18) mg/dL Creatinine (0.7-1.3) mg/dL Est Cr Clr Drug Dosing mL/min Estimated GFR (MDRD) (>60) mL/min BUN/Creatinine Ratio (14-18) Glucose (80-115) mg/dL Calcium (8.5-10.1) mg/dL Total Bilirubin (0.2-1.0) mg/dL AST (15-37) U/L ALT (16-63) U/L Alkaline Phosphatase (46-116) U/L Total Protein (6.4-8.2) g/dl Albumin (3.4-5.0) g/dl Globulin gm/dL Albumin/Globulin Ratio (1-2) Meds: Medications Discontinued Medications Generic Name Dose Route Start Last Admin Trade Name Freq PRN Reason Stop Dose Admin Levetiracetam 500 mg/ Sodium 105 mls @ 400 mls/hr 05/16/18 15:57 Chloride IV 05/16/18 16:11 ONETIME ONE Propofol Confirm 05/16/18 16:34 Diprivan 100 Ml Administered 05/16/18 16:35 Dose 100 mls @ as directed .ROUTE .STK-MED ONE Lidocaine HCl Confirm 05/16/18 16:08 Xylocaine-Mpf 1% Administered 05/16/18 16:09 Dose 30 ml .ROUTE .STK-MED ONE Lorazepam Confirm 05/16/18 15:50 Ativan Administered 05/16/18 15:51 Dose 2 mg .ROUTE .STK-MED ONE Lorazepam Confirm 05/16/18 15:55 Ativan Administered 05/16/18 15:56 Dose 2 mg .ROUTE .STK-MED ONE Lorazepam 2 mg 05/16/18 15:57 Ativan IVPUSH 05/16/18 15:58 ONETIME ONE Metoclopramide HCl 10 mg 05/16/18 15:42 05/16/18 15:46 Reglan IVPUSH 05/16/18 15:43 10 mg ONETIME ONE Administration Sodium Bicarbonate Confirm 05/16/18 16:21 Sodium Bicarbonate 8.4% Administered 05/16/18 16:22 Dose 50 meq .ROUTE .STK-MED ONE - Radiology Interpretation Free Text/Narrative:: 62-year-old male presents to the ED with sudden onset of neurological deficits. Patient at noon suddenly had garbled speech and expressive aphasia symptoms. He was no longer able to walk as well. Of note the patient had a brain tumor resected from the left parieto-occipital brain in February of this year. Unfortunately he developed a DVT in his left lower extremity one week ago and was started on Eliquis for this. He has had no recent falls or injuries. He had had no nausea vomiting up until he reached the ED at which time he started to vomit after my neuro exam. He does have some mild right-sided facial weakness . Unclear if this is pre-existing or not. He has some very mild right weakness of his upper extremity. I could not identify any weakness in his right lower extremity and hamstrings or quadriceps function. He has some mild right facial weakness which may be pre-existing. I'll sustained clonus on the right side with a positive Babinski on that side. Plan is CT of the brain immediately to rule out intracranial hemorrhage. Plan was to give him Reglan 10 mg IV to arrest his vomiting. Prior to this being given IV site failed. Patient then developed a grand mal seizure - Re-Assessments/Exams Free Text/Narrative Re-Assessment/Exam: 06/17/18 15;48: Patient developed a grand mal seizure. IV Access was tenuous at best. He was given Ativan 2 mg intramuscularly. Her last approximately 2 minutes. IV access was then gained and he was given 2 mg of Ativan intravenously followed by 500 mg of intravenous Keppra. He also received Reglan 10 mg IV as he been vomiting and retching prior to the seizure development. Postictally he was extremely confused and aggressive and uncontrollable. Decision made to intubate him. He was moved to a larger theater in preparation for intubation. He received supplemental oxygen via nasal cannula at 3 L/m until that time. 05/16/18 16:10: Patient received initial dose of etomidate 35 mg IV.. This was followed by lidocaine 150 mg IV. This was followed by vecuronium 10 mg IV. He was then bag mask ventilated to achieve O2 sats of 96%. It took multiple attempts at intubation as the cords were not visible with a 4 Mac blade. Handheld glide scope was utilized but I could visualize the cords but could not manipulate the ET tube into the appropriate position with a glide scope in the way. During this timeframe patient required numerous bag mask ventilations with a #4 oropharyngeal airway tube in place. Even with this was difficult to ventilate him and sats continued to fall as low as 35. Heart rate then start to drop into the 50s and he then went into asystole. Chest compressions were started at 1622 hrs. Was given epi 1 mg intravenously and 1 amp of bicarbonate 1624 hrs. Pulse check at 1625 over the monitor revealed a bradycardic pulse was not palpable. CPR was therefore continued. Intubated successfully at 1626 hrs. to 24 cm at the corner of his lip. Received in the second dose of epinephrine 1 mg at 1626 hrs. CPR was discontinued as he has a palpable pulse. 1650 was started on propofol drip at 0.5 mg/kg IV. Central line initially was going to placed in the right femoral but I was unsuccessful. It was placed successfully in the right subclavian with 1 poke. Triple-lumen catheter placed. At 1656 he was placed on the ventilator with a tidal volume of 600 respiratory rate of 16 people 5 at 100% oxygen. ABGs will be done in 10 minutes. 05/16/18 17:17 Labs reveal a white count of 13.59 with normal differential 63% neutrophils no bands. Hemoglobin is 15.1 with hematocrit of 43.5. Sodium is 143 with potassium of 4.3. Chloride is 107 with a bicarbonate of 24. Anion gap is 16.3 mildly elevated BUN is 12. Creatinine is 1.5. EGFR is 47. Glucose is 128. Total bilirubin is 0.8. AST is mildly elevated at 43. ALT is 48. I was informed by nursing staff after contacting both hospitals in [place] that there are no ICU beds available. I was therefore able to speak to emergency room physician at [facility] in regards to excepting care of Mr. Santiago. He will need multi -speciality care in terms of neurology services as well as cardiovascular services. 05/16/18 17:40: ABGs done 10 minutes on the vent revealed a pH of 7.34 PCO2 is still elevated at 45.4 with a PO2 of 79. O2 sats were 95%. Plan it will increase vent rate from 16-20/m. FiO2 is 100% PEEP of 5 and tidal volume is 600. [employer] flight team is now here and patient will be transferred to [place]. 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 We will decide at that point time where he is best placed. Primary problem is neurologic event likely secondary to edema around metastatic brain tumor left occipital parietal brain. Dissection of tumor in this area in February of this year. Development of gradual headache over the last 2-1/2 days with thin impairment of speech and mobility at noon today. Developed nausea and vomiting shortly after arriving the ED. Then developed grand mal convulsion lasting well over 2 minutes. His postictal state was extremely aggressive and he had bitten his tongue filling his mouth with blood. Decision made to intubate which proved to be extremely difficult. Patient suffered significant hypoxia with sats dropping as low as 34% even while being Ambu bag at 15 L/m with an oral airway in place. It took me 5 attempts to establish an endotracheal tube placement. Chest x-ray reveals the tube to be in adequate position. IV sites are extremely tenuous and therefore a central line was placed in his right subclavian vein. On chest x-ray it proves to be in satisfactory position in the right atrium as well. Patient required CPR for 3-4 minutes during the intubation process as he did develop bradycardia and then asystole. S4 resuscitated with epinephrine and bicarbonate 2 doses with return of spontaneous pulse and blood pressure. Vital signs remained stable after resuscitation and appropriate ventilation. Patient was given vecuronium 10 mg IV one hour after initial administration as he was starting to move. He was sedated with propofol 0.5 mg/kg IV. Critical Care Note - Critical Care Note Total Time (mins): 120 - My Orders Last 24 Hours: My Active Orders 05/16/18 15:46 EKG Documentation Completion [RC] STAT 05/16/18 17:00 ABG [BLOOD GAS ARTERIAL] [BG] Stat 05/16/18 17:08 Chest 1V Frontal [CR] Stat - Assessment/Plan Last 24 Hours: My Active Orders 05/16/18 15:46 EKG Documentation Completion [RC] STAT 05/16/18 17:00 ABG [BLOOD GAS ARTERIAL] [BG] Stat 05/16/18 17:08 Chest 1V Frontal [CR] Stat
[2018-05-16] MEDS ORDERED: Metoclopramide 10 MG/2 ML SDV IVPUSH ONE (15:42)
[2018-05-16] MEDS ORDERED: LORazepam 2 MG/ML SDV ONE ×2 (15:50→15:55)
[2018-05-16] MEDS ORDERED: levETIRAcetam 500 MG in Sodium Chloride 0.9% 100 ML IV ONE (15:57)
[2018-05-16] MEDS ORDERED: LORazepam 2 MG/ML SDV IVPUSH ONE (15:57)
[2018-05-16] MEDS ORDERED: Lidocaine 1% 30 ML SDV ONE (16:08)
[2018-05-16] MEDS ORDERED: Sodium Bicarbonate 8.4% 50 MEQ/50 ML Syringe ONE (16:21)
--- NOTE | 2018-05-16 16:21 | CT ---
Head CT (without contrast) Technique: Multiple axial sections were obtained through the brain. Intravenous contrast was not utilized. Comparison: Prior head CT exam of 01/07/18. Findings: Low density is again identified posteriorly within the left parietal and occipital region. Rounded area of low density is seen which is an interval change from prior exam measuring 4.4 cm. Interval craniotomy is seen in this area. Mild midline shift is seen which appears less prominent than on prior study. Midline shift measures approximately 4 mm. No other abnormal parenchymal densities are seen. No evidence of intracranial hemorrhage. Bone window settings were reviewed which shows no acute calvarial abnormality. Mild mucosal thickening is seen within the maxillary sinuses which is felt to be chronic. Impression: 1. Interval craniotomy within the left posterior parietal region. 2. Diminished density within the left parietal and occipital region which is similar to prior exam. 3. New area of rounded low density within the left posterior parietal region measuring 4.4 cm. This may relate to previous surgery although MRI would be needed with contrast to completely exclude a cystic mass. 4. Midline shift of 4 mm which is slightly less prominent than on previous exam. Diagnostic code #9
--- NOTE | 2018-05-18 08:30 | CR ---
Chest: Portable view of the chest was obtained. Comparison: Prior chest x-ray of 01/07/18. Findings: Heart size within normal limits for portable technique. Slightly widened mediastinum is seen most likely representing portable technique. Endotracheal tube is seen with tip lying slightly below the inferior level of the clavicles in satisfactory position. Right subclavian line is seen with tip lying within the superior vena cava. Nasogastric tube is seen with tip lying within the stomach. Diffuse increased central lung markings are seen most likely representing pulmonary vascular congestion. Impression: 1. Diffuse increased central lung markings most likely due to pulmonary vascular congestion. 2. Satisfactory position of tubes and catheters as noted above. Diagnostic code #3 MTDD
== END 2018-05-16 17:45 ==
LOC: JD.ED 15:18
DX: C71.9 Malignant neoplasm of brain, unspecified (principal); C64.2 Malignant neoplasm of left kidney, except renal pelvis; C78.00 Secondary malignant neoplasm of unspecified lung; R29.818 Other symptoms and signs involving the nervous system; Z88.0 Allergy status to penicillin; Z79.899 Other long term (current) drug therapy; I10 Essential (primary) hypertension
CPT/HCPCS: 31500; 36415; 36556; 36600; 51702; 70450; 71045; 80053; 82803; 85007; 85027; 85610; 85730; 92950; 93005; 96360; 96365; 96372; 96375; 96376; 99291; 99292; J0171; J1953; J2060; J2765; J7030; J7040; J3490

== ENCOUNTER 2020-01-02 12:17 | Day surgery (SDC) | payer BC ==
[~2020-01-02 12:17] MED LIST: Lactated Ringers 1,000 ML IV SCH; Lidocaine 1%/Sod Bicarbonate in NS 8.4% 1 ML Syringe IDERM PRN; Sodium Chloride 0.9% 10 ML Syringe FLUSH PRN
[2020-01-02] MEDS ORDERED: Propofol 200 MG/20 ML SDV ONE ×3 (12:32→15:15)
[2020-01-02] MEDS ORDERED: fentaNYL 100 MCG/2 ML SDV ONE (12:32)
[2020-01-02] MEDS ORDERED: Midazolam 1 MG/ML 2 ML SDV ONE (12:32)
[2020-01-02] MEDS ORDERED: Lidocaine 1% 4 ML ONE (12:34)
[2020-01-02] MEDS ORDERED: Ondansetron 4 MG/2 ML SDV ONE (12:36)
[2020-01-02] MEDS ORDERED: Lidocaine 1% with EPINEPHrine 1:100,000 20 ML MDV ONE (12:59)
[2020-01-02] MEDS ORDERED: Sodium Chloride 0.9% 50 ML SDV ONE (13:00)
--- NOTE | 2020-01-02 13:36 | PCM.PREANE ---
Preanesthetic Assessment - Procedure Proposed Procedure: PortaCatheter Placement - Anesthesia/Transfusion/Family Hx Anesthesia History: Prior Anesthesia Without Reaction Type of Anesthesia Reaction: Other (see below) (Patient states history of difficult intubation in the past.) Family History of Anesthesia Reaction: No Transfusion History: No Prior Transfusion(s) Intubation History: Unknown - Review of Systems General: Fatigue, Malaise Pulmonary: No Symptoms (History of NABIL does not use CPAP) Cardiovascular: No Symptoms (History of HTN), Lightheadedness Gastrointestinal: No Symptoms (GERD), Decreased Appetite, Diarrhea, Nausea, Vomiting Neurological: No Symptoms (History of cerebral edema(brain surgery 2017/brain tumor 2017), Numbness (fingers on the right greater than the left), Seizure ( last seizure over a year ago.) Other: Reports: None (History of DVT/Metastatic renal cell carcinoma( nephrectomy 2009), left/CKD noted), Easy Bleeding (on Xarleto: last dose Thursday12-30-2018), Easy Bruising, Sinus Problem, Anxiety - Physical Assessment NPO Status Date: 01/01/20 NPO Status Time: 19:00 Vital Signs: HR: 99 Sat: 94% Resp: 19 Temp: 97.4 BP: 138/90 Height: 1.75 m Weight: 78 kg ASA Class: 3 Mental Status: Alert & Oriented x3 Airway Class: Mallampati = 2 Dentition: Reports: Normal Dentition, [place](s), Caries Thyro-Mental Finger Breadths: 3 Mouth Opening Finger Breadths: 2 ROM/Head Extension: Full Lungs: Clear to Auscultation, Normal Respiratory Effort Cardiovascular: Regular Rate, Regular Rhythm, No Murmurs - Lab Values: All labs reviewed and noted and within acceptable ranges to proceed with scheduled procedure. - Imaging/EKG Impressions: EKG:SR rate= 90, LAD, abnormal R wave progression, consider inferior infarct old Chest CT: No significant changes noted from previous study. - Allergies Allergies/Adverse Reactions: Allergies Allergy/AdvReac Type Severity Reaction Status Date / Time Penicillins Allergy Unknown Cannot Verified 12/30/19 12:07 Remember - Anesthesia Plan Pre-Op Medication Ordered: Beta Sol Beta Sol: Propranolol Med Last Dose Date: 12/31/19 Med Last Dose Time: 18:00 - Acknowledgements Anesthesia Type Planned: MAC Pt an Appropriate Candidate for the Planned Anesthesia: Yes Alternatives and Risks of Anesthesia Discussed w Pt/Guardian: Yes Pt/Guardian Understands and Agrees with Anesthesia Plan: Yes PreAnesthesia Questionnaire HEENT History: Reports: Other (See Below) Other HEENT History: VISUAL CHANGES Cardiovascular History: Reports: Blood Clots/VTE/DVT, Hypertension Respiratory History: Reports: Bronchitis, Recurrent, Sleep Apnea Gastrointestinal History: Reports: Hemorrhoids, Other (See Below) Other Gastrointestinal History: ANAL FISSURE, DIARRHEA, HEMORRHOIDS Genitourinary History: Reports: Other (See Below) Other Genitourinary History: LEFT KIDNEY REMOVED DUE TO CANCER, ACUTE KIDNEY INJURY DENTAL PROSTHETIST History: Reports: None Musculoskeletal History: Reports: None Neurological History: Reports: Other (See Below) Other Neuro History: Brain tumor resection in February 2018, cerebral edema, brain tumor Psychiatric History: Reports: None Endocrine/Metabolic History: Reports: None Hematologic History: Reports: None Immunologic History: Reports: None Oncologic (Cancer) History: Reports: Renal Other Oncologic History: I found out after the patient had left the department that he has a 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 Therefore this lesion that he had resected from his brain in February is a metastatic lesion. Apparently he was quite ataxic with really bad headache prior to performing the surgery. Dermatologic History: Reports: Other (See Below) Other Dermatologic History: rash - Past Surgical History Head Surgeries/Procedures: Reports: Craniotomy HEENT Surgical History: Reports: LASIK Cardiovascular Surgical History: Reports: None Respiratory Surgical History: Reports: None GI Surgical History: Reports: Colonoscopy, EGD, Hernia Repair/Other Female Surgical History: Reports: None Male Surgical History: Reports: Nephrectomy Endocrine Surgical History: Reports: None Musculoskeletal Surgical History: Reports: None Dermatological Surgical History: Reports: None - SUBSTANCE USE Smoking Status *Q: Never Smoker Recreational Drug Use History: No - HOME MEDS Home Medications: Home Meds Lisinopril 20 mg PO DAILY 01/07/18 [History] Propranolol HCl 60 mg PO BID 01/07/18 [History] SUMAtriptan [Imitrex] 50 mg PO DAILY PRN 01/07/18 [History] Axitinib [Inlyta] 3 mg PO Q12H 12/30/19 [History] Fluticasone Propionate [Flonase] 1 dose NASBOTH BID 12/30/19 [History] Lacosamide [Vimpat] 200 mg PO BID 12/30/19 [History] Levocetirizine Dihydrochloride [Xyzal] 5 mg PO BEDTIME 12/30/19 [History] Loperamide [Imodium] 2 mg PO ASDIRECTED PRN 12/30/19 [History] Mometasone Furoate [Elocon] 1 dose TOP DAILY 12/30/19 [History] Nifedipine, Micronized [Nifedipine Micronized] 2 mg TOP TID 12/30/19 [History] Ondansetron HCl [Zofran] 8 mg PO Q8H PRN 12/30/19 [History] Pantoprazole Sodium [Protonix] 40 mg PO QAM 12/30/19 [History] Promethazine [Phenergan] 0.2 ml TOP Q6H PRN 12/30/19 [History] Rivaroxaban [Xarelto] 10 mg PO DAILY 12/30/19 [History] Triamcinolone Acetonide [Triamcinolone Acetonide 0.1% Crm] 1 dose TOP ASDIRECTED PRN 12/30/19 [History] amLODIPine Besylate [Amlodipine Besylate] 10 mg PO DAILY 12/30/19 [History] hydrALAZINE [Apresoline] 50 mg PO TID 12/30/19 [History] - CURRENT (IN HOUSE) MEDS Current Meds: Current Medications Lactated Ringer's (Ringers, Lactated) 1,000 mls @ 125 mls/hr IV ASDIRECTED FLOWER Stop: 01/02/20 23:00 Lidocaine/Sodium Bicarbonate (Buffered Lidocaine 1% In Ns 8.4%) 0.25 ml IDERM ONETIME PRN PRN Reason: Prior to IV Start Stop: 01/02/20 23:00 Sodium Chloride (Saline Flush) 10 ml FLUSH ASDIRECTED PRN PRN Reason: Keep Vein Open Stop: 01/02/20 23:00 Discontinued Medications Fentanyl (Sublimaze) Confirm Administered Dose 100 mcg .ROUTE .STK-MED ONE Stop: 01/02/20 12:33 Heparin Sodium (Porcine) (Heparin Lock Flush 100 Units/Ml) Confirm Administered Dose 4,000 units .ROUTE .STK-MED ONE Stop: 01/02/20 13:00 Lidocaine HCl (Xylocaine-Mpf 1%) Confirm Administered Dose 4 mls @ as directed .ROUTE .STK-MED ONE Stop: 01/02/20 12:35 Lidocaine/Epinephrine (Xylocaine 1% With Epinephrine 1:100,000) Confirm Administered Dose 60 ml .ROUTE .ST-MED ONE Stop: 01/02/20 13:00 Midazolam HCl (Versed 1 Mg/Ml) Confirm Administered Dose 2 mg .ROUTE .STK-MED ONE Stop: 01/02/20 12:33 Ondansetron HCl (Zofran) Confirm Administered Dose 4 mg .ROUTE .STAdvasense-MED ONE Stop: 01/02/20 12:37 Propofol (Diprivan 20 Ml) Confirm Administered Dose 200 mg .ROUTE .STK-MED ONE Stop: 01/02/20 12:33 Propofol (Diprivan 20 Ml) Confirm Administered Dose 200 mg .ROUTE .STAdvasense-MED ONE Stop: 01/02/20 12:48 Sodium Chloride (Normal Saline) Confirm Administered Dose 50 ml .ROUTE .STAdvasense-MED ONE Stop: 01/02/20 13:01
[2020-01-02] MEDS ORDERED: ceFAZolin 1 GM Vial ONE ×2 (14:11)
[2020-01-02] MEDS ORDERED: Lactated Ringers 1,000 ML ONE (14:12)
[2020-01-02] MEDS ORDERED: Ondansetron 4 MG/2 ML SDV IVPUSH PRN (15:25)
--- NOTE | 2020-01-02 16:38 | PCM48HPAN ---
Post Anesthesia Note - EVALUATION WITHIN 48HRS OF ANESTHETIC Vital Signs in Normal Range: Yes Patient Participated in Evaluation: Yes Respiratory Function Stable: Yes Airway Patent: Yes Cardiovascular Function Stable: Yes Hydration Status Stable: Yes Pain Control Satisfactory: Yes Nausea and Vomiting Control Satisfactory: Yes Mental Status Recovered: Yes Vital Signs: Last Vital Signs Temp 36.3 C 01/02/20 13:03 Pulse 99 01/02/20 13:03 Resp 19 01/02/20 13:03 BP 153/94 H 01/02/20 13:03 Pulse Ox 94 L 01/02/20 13:03
--- NOTE | 2020-01-02 16:52 | CR ---
Right chest: Two fluoroscopic spot views were obtained of the right chest utilizing C-arm device. Findings: Study was obtained during placement of Port-A-Cath. Tip of the Port-A-Cath lies near the junction of the superior vena cava and right atria. Impression: 1. Procedural study as noted above. Diagnostic code #2 This report was dictated in [place] Standard Time
--- NOTE | 2020-01-02 17:16 | CR ---
Chest: Portable view of the chest was obtained. Comparison: Prior chest x-ray of 05/16/18. Heart size is normal. Tortuous thoracic aorta is seen. Lungs are clear with no acute parenchymal change. Right-sided infusion port is seen. Tip lies within the superior vena cava. No pneumothorax is seen. Impression: 1. No acute intrathoracic process is seen. 2. Right-sided infusion port as noted above. Diagnostic code #2 Study was dictated in [place] Standard Time
[2020-01-02 17:38] VITALS: BP 141/88; PULSE 84
--- NOTE | 2020-01-02 18:15 | OR ---
DATE OF OPERATION: 01/02/2020 SURGEON: Derrick Cotton MD PREOPERATIVE DIAGNOSIS: Need for central venous port. POSTOPERATIVE DIAGNOSIS: Port in place. OPERATION PERFORMED: Port-A-Cath placement and ultrasound and fluoroscopic guidance. ANESTHESIA: Monitored anesthesia care. ESTIMATED BLOOD LOSS: 20 mL. COMPLICATIONS: None. INDICATIONS AND CONSENT: Mr. Santiago is a 64-year-old male with a history of cancer. The patient is undergoing chemotherapy as well as requiring multiple IV hydrations a week. The patient is doing all this with the peripheral IV, but as of late it has been difficult to obtain an IV access in him, therefore, his provider recommended a central venous port. The patient presented to my clinic for evaluation of the port. He never had central venous port or central venous access in the past. I evaluated him and recommended proceeding with a Port-A-Cath placement. The patient agreed. We discussed risks, benefits, and alternatives. The risks discussed included pneumothorax, bleeding, infection, injury to the other vessels including the artery, and need for additional procedures. The patient agreed and informed consent was obtained. DESCRIPTION OF PROCEDURE: The patient was taken to the operating room, placed in supine position with neck flexed towards the left. Then, the chest was prepped and draped in the usual sterile fashion. A formal time-out was performed prior to the start of the procedure. Preoperative antibiotics consisting of Ancef were provided. Then under ultrasound guidance, the internal jugular vein was accessed with an introducer needle after the patient was placed in Trendelenburg position. There was low pressure in the venous system, therefore, 3 passes were required to access the internal jugular. Once this was done, a guidewire was placed and was visualized under fluoroscopy into the inferior vena cava. Then, a peel away sheath was placed. Next, the right chest was visualized and a port site was selected about 3 fingerbreadths below the clavicle. Local anesthetic was infiltrated and port pocket was created. Then, using the tunneler, the catheter was tunneled up to the neck where the entry site into the internal jugular was. Once this was done, the catheter was threaded into the internal jugular and SVC under direct visualization of fluoroscopy. The tip of the catheter was left at what seemed to be superior vena cava and atrial junction. Once this was done, the port was flushed with normal saline and connected to the catheter and the port then was placed into the port pocket. Once this was done, the system was aspirated with good flow of blood and injected initially with normal saline. Then, the incision at the port site was closed in 2 layers, the subcutaneous tissue with 3-0 Vicryl stitches and dermis with 3-0 Vicryl stitches. The internal jugular access site was also closed in 1 layer with 3-0 Vicryl stitch. Once this was done, the port was accessed again from the skin, aspirated with good aspiration of blood and was injected with heparinized saline. This marked the end of the procedure. The incision was dressed with Dermabond. The patient was taken to the PACU for recovery. The plan is for the patient to start using the port as soon as needed, and the patient can continue using the port at home. He can call to my office with any complications. DARREN /[id number]
== END 2020-01-02 17:37 | disposition home or self-care (01) ==
LOC: JD.SDS 12:17
PROVIDERS: ATTEND Surgery
DX: C64.2 Malignant neoplasm of left kidney, except renal pelvis (principal); C78.02 Secondary malignant neoplasm of left lung; C78.01 Secondary malignant neoplasm of right lung; C79.31 Secondary malignant neoplasm of brain; I12.9 Hypertensive chronic kidney disease with stage 1 through stage 4 chronic kidney disease, or unspecified chronic kidney disease; N18.9 Chronic kidney disease, unspecified; G47.33 Obstructive sleep apnea (adult) (pediatric); K21.9 Gastro-esophageal reflux disease without esophagitis; F41.9 Anxiety disorder, unspecified; Z88.0 Allergy status to penicillin; Z79.01 Long term (current) use of anticoagulants; Z79.899 Other long term (current) drug therapy; Z99.89 Dependence on other enabling machines and devices; Z86.718 Personal history of other venous thrombosis and embolism; Z90.5 Acquired absence of kidney
CPT/HCPCS: 36561; 71045; 76000; 87641; 93005; J0690; J1642; J2001; J2250; J2405; J2704; J3010; J7120; 00532; C1788

== ENCOUNTER 2020-01-06 11:58 | Emergency (ER) | payer BC ==
[2020-01-06] MEDS ORDERED: Sodium Chloride 0.9% 10 ML Syringe FLUSH PRN (12:14)
[2020-01-06 12:19] VITALS: PULSE 60
--- NOTE | 2020-01-06 13:23 | CT ---
CT cervical spine Technique: Multiple axial sections through the cervical spine were obtained from above the C1 inferiorly to the bottom of T2. Reconstructed sagittal and coronal images were reviewed. Comparison: No prior cervical spine imaging is available. Findings: Degenerative change is noted between the dens and anterior arch of C1. Mild scattered anterior endplate osteophytes are seen. Mild diffuse degenerative change throughout the apophyseal joints is noted. Minimal compression deformity of T2 is noted. No definite fracture lines are seen in this area although MRI would be needed to confirm that this is not acute. Other vertebral body heights are maintained. No cervical spine fracture is appreciated. Mild right-sided neural foraminal stenosis noted at C3-C4. No abnormal subluxation is seen. Impression: 1. Mild degenerative change as noted above. 2. Anterior wedge deformity of T2. No definite acute fracture line is seen although MRI would be needed to completely exclude acute compression deformity if clinically needed. 3. No cervical spine fracture or abnormal subluxation is seen. Diagnostic code #3 This report was dictated in [place] Standard Time
--- NOTE | 2020-01-06 13:53 | CT ---
Head CT Technique: Multiple axial sections through the brain were obtained. Intravenous contrast was not utilized. Comparison: Prior head CT study of 05/16/18. Findings: Ex vacuole enlargement is seen of the occipital horn of the lateral left ventricle with adjacent area of encephalomalacia presumably from prior surgery. Ventricles along with basal cisterns and sulci over the convexities are mildly prominent. No evidence of intracranial hemorrhage. No midline shift or mass effect is seen. Previous study showed a cystic mass within the posterior left parietal-occipital region which has been resected in the interim from previous exam. Bone window settings were reviewed which show mild mucosal thickening within the maxillary and ethmoid sinuses. No fluid is seen within the paranasal sinuses. Mastoid sinuses are clear. Old left-sided craniotomy is noted. Impression: 1. Old findings as described above within the left posterior parietal region. Interval surgery from prior head CT study as noted above. 2. Nothing acute is appreciated on noncontrast head CT. Diagnostic code #2 This report was dictated in [place] Standard Time
--- NOTE | 2020-01-06 13:59 | EDM.PDOC ---
ED HPI GENERAL MEDICAL PROBLEM - General Chief Complaint: Head Injury Stated Complaint: FELL AT CLINIC HEAD INJURY Time Seen by Provider: 01/06/20 12:12 Source of Information: Reports: Patient, Family, Provider History Limitations: Reports: No Limitations - History of Present Illness INITIAL COMMENTS - FREE TEXT/NARRATIVE: The patient presents from the clinic at [facility]. He has cancer was getting an infusion. He went to the bathroom and he tripped and hit his head. He has an abrasion to his head and neck pain. He has no chest pain, shortness of breath, abdominal pain, nausea or vomiting. He also has some chest pain from the fall. The patient is on xarelto. Onset: Sudden Duration: Minutes: Location: Reports: Head, Neck, Chest Quality: Reports: Sharp Severity: Mild Improves with: Reports: None Worsens with: Reports: None Associated Symptoms: Reports: Chest Pain, Headaches. Denies: Cough, Fever/ Chills, Nausea/Vomiting, Shortness of Breath Neck Pain Score (Numeric/FACES): 4 - Related Data Allergies Allergy/AdvReac Type Severity Reaction Status Date / Time Penicillins Allergy Unknown Cannot Verified 01/06/20 12:19 Remember Home Meds: Home Meds Lisinopril 20 mg PO DAILY 01/07/18 [History] Propranolol HCl 60 mg PO BID 01/07/18 [History] SUMAtriptan [Imitrex] 50 mg PO DAILY PRN 01/07/18 [History] Axitinib [Inlyta] 3 mg PO Q12H 12/30/19 [History] Fluticasone Propionate [Flonase] 1 dose NASBOTH BID 12/30/19 [History] Lacosamide [Vimpat] 200 mg PO BID 12/30/19 [History] Levocetirizine Dihydrochloride [Xyzal] 5 mg PO BEDTIME 12/30/19 [History] Loperamide [Imodium] 2 mg PO ASDIRECTED PRN 12/30/19 [History] Mometasone Furoate [Elocon] 1 dose TOP DAILY 12/30/19 [History] Nifedipine, Micronized [Nifedipine Micronized] 2 mg TOP TID 12/30/19 [History] Ondansetron HCl [Zofran] 8 mg PO Q8H PRN 12/30/19 [History] Pantoprazole Sodium [Protonix] 40 mg PO QAM 12/30/19 [History] Promethazine [Phenergan] 0.2 ml TOP Q6H PRN 12/30/19 [History] Rivaroxaban [Xarelto] 10 mg PO DAILY 12/30/19 [History] Triamcinolone Acetonide [Triamcinolone Acetonide 0.1% Crm] 1 dose TOP ASDIRECTED PRN 12/30/19 [History] amLODIPine Besylate [Amlodipine Besylate] 10 mg PO DAILY 12/30/19 [History] hydrALAZINE [Apresoline] 50 mg PO TID 12/30/19 [History] Hydrocodone/Acetaminophen [Hydrocodon-Acetaminophen 5-325] 1 - 2 each PO Q6HR PRN #20 tablet 01/06/20 [Rx] Past Medical History HEENT History: Reports: Other (See Below) Other HEENT History: VISUAL CHANGES Cardiovascular History: Reports: Blood Clots/VTE/DVT, Hypertension Respiratory History: Reports: Bronchitis, Recurrent, Sleep Apnea Gastrointestinal History: Reports: Hemorrhoids, Other (See Below) Other Gastrointestinal History: ANAL FISSURE, DIARRHEA, HEMORRHOIDS Genitourinary History: Reports: Other (See Below) Other Genitourinary History: LEFT KIDNEY REMOVED DUE TO CANCER, 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 Therefore this lesion that he had resected from his brain in February is a metastatic lesion. Apparently he was quite ataxic with really bad headache prior to performing the surgery. Dermatologic History: Reports: Other (See Below) Other Dermatologic History: rash - Past Surgical History Head Surgeries/Procedures: Reports: Craniotomy HEENT Surgical History: Reports: LASIK Cardiovascular Surgical History: Reports: None Respiratory Surgical History: Reports: None GI Surgical History: Reports: Colonoscopy, EGD, Hernia Repair/Other Male Surgical History: Reports: Nephrectomy Endocrine Surgical History: Reports: None Musculoskeletal Surgical History: Reports: None Dermatological Surgical History: Reports: None Social & Family History - Family History Family Medical History: Noncontributory Other Cardiac Family History: MO - alive with HTN Other Family History: FA - of prostate cancer Other Oncologic Family History: FA - of bladder cancer - Tobacco Use Smoking Status *Q: Never Smoker Second Hand Smoke Exposure: No - Caffeine Use Caffeine Use: Reports: None - Recreational Drug Use Recreational Drug Use: No - Living Situation & Occupation Living situation: Reports: with Family Occupation: Employed ED ROS GENERAL - Review of Systems Review Of Systems: See Below Constitutional: Reports: No Symptoms HEENT: Reports: No Symptoms Respiratory: Reports: No Symptoms Cardiovascular: Reports: Chest Pain Endocrine: Reports: No Symptoms GI/Abdominal: Reports: No Symptoms : Reports: No Symptoms Musculoskeletal: Reports: Neck Pain ED EXAM, HEAD INJURY - Physical Exam Exam: See Below Exam Limited By: No Limitations General Appearance: Alert, No Apparent Distress Head: Normocephalic, Other (Abrasion to the top of your head) Eyes: Bilateral Eye: EOMI Ears: Normal External Exam Nose: Normal Inspection Neck: Tender Midline Respiratory: No Respiratory Distress, Lungs Clear, Normal Breath Sounds Cardiovascular: Regular Rate, Rhythm, No Edema, No Murmur GI/Abdominal Exam: Soft, Non-Tender, No Organomegaly, No Mass Back Exam: Normal Inspection Extremities: Normal Inspection EKG INTERPRETATION EKG Date: 01/06/20 Time: 12:16 Rhythm: NSR Rate (Beats/Min): 61 [place]: Normal P-Wave: Present QRS: Normal ST-T: Normal QT: Normal Course - Vital Signs Last Recorded V/S: Last Vital Signs Temp 98.1 F 01/06/20 12:16 Pulse 60 01/06/20 12:16 Resp 16 01/06/20 12:16 BP 161/95 H 01/06/20 12:16 Pulse Ox 96 01/06/20 12:16 - Orders/Labs/Meds Orders: Active Orders 24 hr Category Date Time Status Cardiac Monitoring [RC] . DIRECTED Care 01/06/20 12:14 Active EKG Documentation Completion [RC] STAT Care 01/06/20 12:14 Active Peripheral IV Care [RC] . DIRECTED Care 01/06/20 12:14 Active CXR [Chest 2V] [CR] Stat Exams 01/06/20 12:28 Taken Sodium Chloride 0.9% [Saline Flush] Med 01/06/20 12:14 Active 10 ml FLUSH ASDIRECTED PRN Peripheral IV Insertion Adult [OM.PC] Stat Oth 01/06/20 12:14 Ordered Medication Orders Sodium Chloride (Saline Flush) 10 ml FLUSH ASDIRECTED PRN PRN Reason: Keep Vein Open Labs: Laboratory Tests 01/06/20 01/06/20 Range/Units 12:25 12:25 WBC 3.50 L (4.23-9.07) K/mm3 RBC 5.05 (4.63-6.08) M/mm3 Hgb 14.7 (13.7-17.5) gm/dl Hct 44.6 (40.1-51.0) % MCV 88.3 D (79.0-92.2) fl MCH 29.1 (25.7-32.2) pg MCHC 33.0 (32.2-35.5) g/dl RDW Std Deviation 44.3 H (35.1-43.9) fL Plt Count 135 L (163-337) K/mm3 MPV 9.9 (9.4-12.3) fl Neut % (Auto) 63.4 (34.0-67.9) % Lymph % (Auto) 20.3 L (21.8-53.1) % [place] % (Auto) 10.6 (5.3-12.2) % Eos % (Auto) 3.7 (0.8-7.0) Baso % (Auto) 0.3 (0.1-1.2) % Neut # (Auto) 2.22 (1.78-5.38) K/mm3 Lymph # (Auto) 0.71 L (1.32-3.57) K/mm3 [place] # (Auto) 0.37 (0.30-0.82) K/mm3 Eos # (Auto) 0.13 (0.04-0.54) K/mm3 Baso # (Auto) 0.01 (0.01-0.08) K/mm3 Sodium 141 (136-145) mEq/L Potassium 4.2 (3.5-5.1) mEq/L Chloride 107 (98-107) mEq/L Carbon Dioxide 24 (21-32) mEq/L Anion Gap 14.2 (5-15) BUN 8 (7-18) mg/dL Creatinine 1.0 (0.7-1.3) mg/dL Est Cr Clr Drug Dosing 74.63 mL/min Estimated GFR (MDRD) > 60 (>60) mL/min BUN/Creatinine Ratio 8.0 L (14-18) Glucose 108 (80-115) mg/dL Calcium 8.4 L (8.5-10.1) mg/dL Total Bilirubin 0.4 (0.2-1.0) mg/dL AST 50 H (15-37) U/L ALT 41 (16-63) U/L Alkaline Phosphatase 82 (46-116) U/L Troponin I < 0.017 (0.00-0.056) ng/mL Total Protein 5.7 L (6.4-8.2) g/dl Albumin 2.4 L (3.4-5.0) g/dl Globulin 3.3 gm/dL Albumin/Globulin Ratio 0.7 L (1-2) Meds: Medications Generic Name Dose Route Start Last Admin Trade Name Freq PRN Reason Stop Dose Admin Sodium Chloride 10 ml 01/06/20 12:14 Saline Flush FLUSH ASDIRECTED PRN Keep Vein Open - Re-Assessments/Exams Free Text/Narrative Re-Assessment/Exam: 01/06/20 13:59 I ordered an EKG, CT of his head, cervical spin, labs and a CXR. His EKG shows a NSR with no acute changes. His WBC was a little low at 3.5. His AST was slightly elevated at 50. His troponin is negative. His CXR looks good. The CT of his cervical spine shows mild degenerative change as noted above. Anterior wedge deformity of T2. No definite acute fracture line is seen although MRI would be needed to completely exclude acute compression deformity if clinically needed. No cervical spine fracture or abnormal subluxation is seen. The CT of his head shows old findings as described above within the left posterior parietal region. Interval surgery from prior head CT study as noted above. Nothing acute is appreciated on noncontrast head CT. Departure - Departure Time of Disposition: 14:10 Disposition: Home, Self-Care 01 Condition: Good Clinical Impression: Fall Qualifiers: Encounter type: initial encounter Qualified Code(s): W19.XXXA - Unspecified fall, initial encounter Cervical strain, acute Qualifiers: Encounter type: initial encounter Qualified Code(s): S16.1XXA - Strain of muscle, fascia and tendon at neck level, initial encounter Abrasion of scalp Qualifiers: Encounter type: initial encounter Qualified Code(s): S00.01XA - Abrasion of scalp, initial encounter - Discharge Information *PRESCRIPTION DRUG MONITORING PROGRAM REVIEWED*: Not Applicable *COPY OF PRESCRIPTION DRUG MONITORING REPORT IN PATIENT ALEX: Not Applicable Prescriptions: Hydrocodone/Acetaminophen [Hydrocodon-Acetaminophen 5-325] 1 - 2 each PO Q6HR PRN #20 tablet PRN Reason: Pain Referrals: PCP,Not In Area [Primary Care Provider] - Forms: ED Department Discharge Additional Instructions: Take tylenol for pain. If that does not help try the hydrocodone. If you continue to have pain in your upper back, see your doctor for an MRI. There is a slight wedge fracture that looks old but it still could be new. Please return if you are worse. Sepsis Event Note - Evaluation Sepsis Screening Result: No Definite Risk - Focused Exam Vital Signs: Vital Signs Temp Pulse Resp BP Pulse Ox 01/06/20 12:16 98.1 F 60 16 161/95 H 96 Date Exam was Performed: 01/06/20 Time Exam was Performed: 14:07 - My Orders Last 24 Hours: My Active Orders 01/06/20 12:14 Cardiac Monitoring [RC] . DIRECTED EKG Documentation Completion [RC] STAT Peripheral IV Care [RC] . DIRECTED Sodium Chloride 0.9% [Saline Flush] 10 ml FLUSH ASDIRECTED PRN Peripheral IV Insertion Adult [OM.PC] Stat 01/06/20 12:28 CXR [Chest 2V] [CR] Stat - Assessment/Plan Last 24 Hours: My Active Orders 01/06/20 12:14 Cardiac Monitoring [RC] . DIRECTED EKG Documentation Completion [RC] STAT Peripheral IV Care [RC] . DIRECTED Sodium Chloride 0.9% [Saline Flush] 10 ml FLUSH ASDIRECTED PRN Peripheral IV Insertion Adult [OM.PC] Stat 01/06/20 12:28 CXR [Chest 2V] [CR] Stat
[2020-01-06 14:31] VITALS: BP 157/95
--- NOTE | 2020-01-07 08:30 | CR ---
Chest: PA and lateral views of the chest were obtained. Comparison: Prior chest x-ray of 05/16/18. Heart size is normal. Tortuous thoracic aorta is seen. Lungs are clear with no acute parenchymal change. Right-sided infusion port is noted. Degenerative endplate spurring is noted within the spine. Impression: 1. Findings as noted above. 2. Nothing acute is identified. Diagnostic code #2 This report was dictated in [place] Standard Time
== END 2020-01-06 14:31 | disposition home or self-care (01) ==
LOC: JD.ED 11:58
DX: S16.1XXA Strain of muscle, fascia and tendon at neck level, initial encounter (principal); S00.01XA Abrasion of scalp, initial encounter; I10 Essential (primary) hypertension; Z88.0 Allergy status to penicillin; Z79.899 Other long term (current) drug therapy; Z85.528 Personal history of other malignant neoplasm of kidney; Z90.5 Acquired absence of kidney; W01.10XA Fall on same level from slipping, tripping and stumbling with subsequent striking against unspecified object, initial encounter
CPT/HCPCS: 36415; 70450; 70450-26; 71046; 71046-26; 72125; 72125-26; 80053; 84484; 85025; 93005; 93010; 99283; 99284-25

== ENCOUNTER 2021-04-29 13:04 | Emergency (ER) | payer MEDICARE, BC ==
[2021-04-29] MEDS ORDERED: Sodium Chloride 0.9% 10 ML Syringe FLUSH PRN (13:35)
[2021-04-29] MEDS ORDERED: Ondansetron 4 MG/2 ML SDV IVPUSH ONE (13:35)
[2021-04-29] MEDS ORDERED: HYDROmorphone 0.5 MG/0.5 ML Syringe IVPUSH ONE ×2 (13:35→14:09)
--- NOTE | 2021-04-29 13:46 | EDM.PDOC ---
ED HPI GENERAL MEDICAL PROBLEM - General Chief Complaint: Flank Pain Stated Complaint: KIDNEY AND ABD PAIN SENT BY [facility] Time Seen by Provider: 04/29/21 13:07 Source of Information: Reports: Patient, RN Notes Reviewed History Limitations: Reports: No Limitations - History of Present Illness INITIAL COMMENTS - FREE TEXT/NARRATIVE: Patient is a 65-year-old male presenting to the emergency department with complaints of right sided flank pain, nausea and vomiting, and dark urine. He reports the symptoms began yesterday afternoon but did resolve later in the day. By last evening, they had recurred. Pain has been fairly constant throughout the day today. He describes a sharp stabbing pain in his right flank which wraps around into his right lower abdomen. He did take Tylenol earlier this morning with little relief. He vomited shortly after taking this medication, so it is unclear how much he actually kept down. Has been using a heating pad to his flank area which initially helped but is no longer helping. Reports his urine has been dark in color for the last few days. Denies any dysuria. He said no fever or chills. Patient does have a history of left-sided kidney cancer and has had a nephrectomy on that side. He denies having cancer within his right kidney to his knowledge. He reports he has metastases to his liver and will likely brain. He is currently on oral chemotherapy. 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 Right Flank Pain Score (Numeric/FACES): 8 - Related Data Allergies Allergy/AdvReac Type Severity Reaction Status Date / Time Penicillins Allergy Unknown Cannot Verified 04/29/21 13:14 Remember Home Meds: Home Meds Lisinopril 20 mg PO DAILY 01/07/18 [History] Propranolol HCl 60 mg PO BID 01/07/18 [History] SUMAtriptan [Imitrex] 50 mg PO DAILY PRN 01/07/18 [History] Lacosamide [Vimpat] 200 mg PO DAILY 12/30/19 [History] Levocetirizine Dihydrochloride [Xyzal] 5 mg PO BEDTIME 12/30/19 [History] Loperamide [Imodium] 2 mg PO ASDIRECTED PRN 12/30/19 [History] Pantoprazole Sodium [Protonix] 40 mg PO QAM 12/30/19 [History] Rivaroxaban [Xarelto] 10 mg PO DAILY 12/30/19 [History] Triamcinolone Acetonide [Triamcinolone Acetonide 0.1% Crm] 1 dose TOP ASDIRECTED PRN 12/30/19 [History] amLODIPine Besylate [Amlodipine Besylate] 5 mg PO DAILY 12/30/19 [History] hydrALAZINE [Apresoline] 25 mg PO DAILY 12/30/19 [History] ondansetron HCL [Zofran] 8 mg PO Q8H PRN 12/30/19 [History] Past Medical History HEENT History: Reports: Other (See Below) Other HEENT History: VISUAL CHANGES Cardiovascular History: Reports: Blood Clots/VTE/DVT, Hypertension Respiratory History: Reports: Bronchitis, Recurrent, Sleep Apnea Gastrointestinal History: Reports: Hemorrhoids, Other (See Below) Other Gastrointestinal History: ANAL FISSURE, DIARRHEA, HEMORRHOIDS Genitourinary History: Reports: Other (See Below) Other Genitourinary History: LEFT KIDNEY REMOVED DUE TO CANCER, 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 Therefore this lesion that he had resected from his brain in February is a metastatic lesion. Apparently he was quite ataxic with really bad headache prior to performing the surgery. Dermatologic History: Reports: Other (See Below) Other Dermatologic History: rash - Infectious Disease History Infectious Disease History: Reports: Chicken Pox - Past Surgical History Head Surgeries/Procedures: Reports: Craniotomy HEENT Surgical History: Reports: LASIK Cardiovascular Surgical History: Reports: None Respiratory Surgical History: Reports: None GI Surgical History: Reports: Appendectomy, Colonoscopy, EGD, Hernia Repair/Other Male Surgical History: Reports: Nephrectomy Endocrine Surgical History: Reports: None Musculoskeletal Surgical History: Reports: None Dermatological Surgical History: Reports: None Social & Family History - Family History Family Medical History: No Pertinent Family History Other Cardiac Family History: MO - alive with HTN Other Family History: FA - of prostate cancer Other Oncologic Family History: FA - of bladder cancer - Tobacco Use Tobacco Use Status *Q: Never Tobacco User - Caffeine Use Caffeine Use: Reports: Tea - Recreational Drug Use Recreational Drug Use: No - Living Situation & Occupation Living situation: Reports: with Family Occupation: Employed ED ROS GENERAL - Review of Systems Review Of Systems: See Below Constitutional: Reports: No Symptoms. Denies: Fever, Chills, Weakness HEENT: Reports: No Symptoms, Vertigo Cardiovascular: Reports: No Symptoms Endocrine: Reports: No Symptoms GI/Abdominal: Reports: Abdominal Pain (Right sided.), Nausea, Vomiting. Denies: Diarrhea : Reports: Flank Pain, Other ("dark urine"). Denies: Dysuria, Frequency, Urgency Musculoskeletal: Reports: No Symptoms Skin: Reports: No Symptoms Neurological: Reports: No Symptoms Psychiatric: Reports: No Symptoms Hematologic/Lymphatic: Reports: No Symptoms Immunologic: Reports: No Symptoms ED EXAM, RENAL/ - Physical Exam Exam: See Below General Appearance: Alert, Mild Distress Respiratory/Chest: No Respiratory Distress, Lungs Clear, Normal Breath Sounds, No Accessory Muscle Use, Chest Non-Tender Cardiovascular: Normal Peripheral Pulses, Regular Rate, Rhythm, No Edema, No Gallop, No JVD, No Murmur, No Rub GI/Abdominal: Normal Bowel Sounds, Soft, Non-Tender, No Organomegaly, No Distention, No Abnormal Bruit, No Mass Back Exam: Normal Inspection, Full Range of Motion, CVA Tenderness (R) Neurological: Alert, Oriented, CN II-XII Intact, Normal Cognition, Normal Gait, Normal Reflexes, No Motor/Sensory Deficits Psychiatric: Normal Affect, Normal Mood Skin Exam: Warm, Dry, Intact, No Rash, Pallor Course - Vital Signs Last Recorded V/S: Last Vital Signs Temp 97.5 F 04/29/21 13:18 Pulse 70 04/29/21 17:14 Resp 13 04/29/21 17:14 BP 141/83 H 04/29/21 17:14 Pulse Ox 100 04/29/21 17:14 - Orders/Labs/Meds Labs: Laboratory Tests 04/29/21 04/29/21 04/29/21 Range/Units 13:25 13:40 13:40 WBC 4.99 (4.23-9.07) K/mm3 RBC 4.18 L (4.63-6.08) M/mm3 Hgb 12.9 L D (13.7-17.5) gm/dl Hct 39.0 L (40.1-51.0) % MCV 93.3 H D (79.0-92.2) fl MCH 30.9 (25.7-32.2) pg MCHC 33.1 (32.2-35.5) g/dl RDW Std Deviation 43.3 (35.1-43.9) fL Plt Count 166 (163-337) K/mm3 MPV 9.4 (9.4-12.3) fl Neut % (Auto) 73.6 H (34.0-67.9) % Lymph % (Auto) 13.6 L (21.8-53.1) % [place] % (Auto) 6.6 (5.3-12.2) % Eos % (Auto) 5.8 (0.8-7.0) Baso % (Auto) 0.4 (0.1-1.2) % Neut # (Auto) 3.67 (1.78-5.38) K/mm3 Lymph # (Auto) 0.68 L (1.32-3.57) K/mm3 [place] # (Auto) 0.33 (0.30-0.82) K/mm3 Eos # (Auto) 0.29 (0.04-0.54) K/mm3 Baso # (Auto) 0.02 (0.01-0.08) K/mm3 Sodium 144 (136-145) mEq/L Potassium 4.1 (3.5-5.1) mEq/L Chloride 109 H (98-107) mEq/L Carbon Dioxide 22 (21-32) mEq/L Anion Gap 17.1 H (5-15) BUN 26 H (7-18) mg/dL Creatinine 1.7 H (0.7-1.3) mg/dL Est Cr Clr Drug Dosing 43.14 mL/min Estimated GFR (MDRD) 41 (>60) mL/min BUN/Creatinine Ratio 15.3 (14-18) Glucose 93 (70-99) mg/dL Calcium 7.9 L (8.5-10.1) mg/dL Total Bilirubin 0.6 (0.2-1.0) mg/dL AST 32 (15-37) U/L ALT 47 (16-63) U/L Alkaline Phosphatase 82 (46-116) U/L C-Reactive Protein 0.8 (<1.0) mg/dL Total Protein 7.1 (6.4-8.2) g/dl Albumin 3.7 (3.4-5.0) g/dl Globulin 3.4 gm/dL Albumin/Globulin Ratio 1.1 (1-2) Urine Color Yellow (Yellow) Urine Appearance Cloudy H (Clear) Urine pH 6.0 (5.0-8.0) Ur Specific [place] 1.025 (1.005-1.030) Urine Protein 2+ H (Negative) Urine Glucose (UA) Negative (Negative) Urine Ketones Negative (Negative) Urine Occult Blood 3+ H (Negative) Urine Nitrite Negative (Negative) Urine Bilirubin Negative (Negative) Urine Urobilinogen 0.2 (0.2-1.0) Ur Leukocyte Esterase Negative (Negative) Urine RBC >100 H (0-5) /hpf Urine WBC 10-20 H (0-5) /hpf Ur Epithelial Cells Not seen (0-5) /hpf Urine Bacteria Moderate H (FEW) /hpf Urine Mucus Few (FEW) /hpf Meds: Medications Discontinued Medications Generic Name Dose Route Start Last Admin Trade Name Freq PRN Reason Stop Dose Admin Hydromorphone HCl 0.5 mg 04/29/21 13:35 04/29/21 13:44 Hydromorphone 0.5 Mg/0.5 Ml Syringe IVPUSH 04/29/21 13:36 0.5 mg ONETIME ONE Administration Hydromorphone HCl 0.5 mg 04/29/21 14:09 04/29/21 14:36 Hydromorphone 0.5 Mg/0.5 Ml Syringe IVPUSH 04/29/21 14:10 0.5 mg ONETIME ONE Administration Ondansetron HCl 4 mg 04/29/21 13:35 04/29/21 13:43 Ondansetron 4 Mg/2 Ml Sdv IVPUSH 04/29/21 13:36 4 mg ONETIME ONE Administration Sodium Chloride 10 ml 04/29/21 13:35 04/29/21 13:44 Sodium Chloride 0.9% 10 Ml Syringe FLUSH 10 ml ASDIRECTED PRN Administration Keep Vein Open - Re-Assessments/Exams Free Text/Narrative Re-Assessment/Exam: Patient is a 65-year-old male presenting to the emergency with complaints of acute onset of right-sided flank pain yesterday. Pain has been occurring off and on since that time but has been fairly consistent throughout the day today. He also reports dark urine as well as nausea and vomiting. He has significant right-sided CVA tenderness. Exam is concerning for a right-sided kidney stone. I have ordered blood work, urinalysis, and a CT scan of the abdomen pelvis without contrast. I will give Dilaudid 0.5 mg and Zofran 4 mg IV. 04/29/21 14:55 Hematology significant for hemoglobin minimally low at 12.9, chloride 109, and a gap 17.1, BUN 26, creatinine 1.7. Urinalysis shows cloudy appearance, 2+ protein, 3+ occult blood, greater than 100 RBCs, 10-20 WBCs and moderate bacteria. It is nitrite and leukocyte esterase negative. CT scan of the abdomen pelvis impression as follows: 1. There are 2, 5 mm calculi within the proximal/mid right ureter. Associated moderate right hydronephrosis and proximal right hydroureter. Moderate perinephric stranding. 2. Multiple small right renal calculi. 3. 3.4 cm left adrenal nodule, new from 2016. Etiology uncertain. Malignant versus benign. Further evaluation with adrenal mass MRI may further characterize. Ultimately biopsy may be necessary. 4. There is a new 1.5 cm left retroperitoneal lymph node. 5. Equivocal wall thickening of the rectum. Correlate with direct visualization to exclude mass. 6. Enlarged prostate. 7. Small bowel is minimally distended with few slightly prominent fluid-filled loops. In the appropriate clinical setting this may represent enteritis. 8. See above for other details. Review of the [place] health information system shows that patient's baseline creatinine is 0.8-1 with a baseline GFR of 75. GFR today is much lower at 41 with a creatinine 1.7. Given that he only has 1 kidney, this is concerning. I have placed a phone call to the urologist on-call at [facility], Dr. Ennis. I am awaiting a call back. 04/29/21 16:20 Case was discussed with Dr. Barba, urologist at [facility]. He recommended pt be transferred this evening with plans to do surgery tomorrow. Case discussed with hospitalist, Dr. Jones. He has accepted the pt for transfer with direct admission. Pt will transport via private vehicle. His will be here in about 45 minutes to take him. Pain is well controlled at this time. Departure - Departure Time of Disposition: 16:20 Disposition: DC/Tfer to Acute Hospital 02 Condition: Good Clinical Impression: Kidney stone on right side - Discharge Information Referrals: Xiomara Pearson NP [Primary Care Provider] - Forms: ED Department Discharge Sepsis Event Note (ED) - Evaluation Sepsis Screening Result: No Definite Risk
[2021-04-29 17:17] VITALS: BP 141/83; PULSE 70
--- NOTE | 2021-04-30 07:41 | CT ---
CT abdomen and pelvis Technique: Multiple axial sections were obtained from above the dome of the diaphragm inferiorly through the pubic symphysis. Intravenous and oral contrast was not utilized. Study has been performed as a ureteral stone protocol. Comparison: Prior CT study of 11/30/15 as well as baseline exam of 12/23/10. Findings: Slight atelectasis is noted within the left lung base. Multiple small low density lesions are seen within the liver. Largest lesion is within the left lobe measuring 1.7 cm and has Hounsfield unit measurements of a cyst. Second largest lesion is within the right lobe measuring 1.4 cm and also has Hounsfield unit measurements of a cyst. Other low-density findings are too small to accurately measure but most likely represent cysts. Spleen size is normal. Small calcification is seen is seen within the tail of the spleen measuring about 2-2.5 mm in size. This is an interval change from prior CT exams but is most likely benign. Gallbladder contains no calcified gallstones. Left adrenal mass is noted. This adrenal mass measures about 3.2 cm in size and is an interval change from prior exam. Small nodule is also noted within the posterior right renal fat measuring 8 mm. Single enlarged lymph node within the retroperitoneum is seen on the left side measuring 1.8 cm. 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 Right kidney shows multiple small nonobstructing calculi. There is prominence of the right collecting system and proximal right ureter. These findings are caused by 2 adjacent obstructing ureteral stones within the proximal right ureter both measuring around 5 mm. Other portions of the right ureter show no additional abnormal calculi. Abdominal aorta shows no aneurysm. No mesenteric abnormalities are seen. No pelvic mass or adenopathy is noted. Bone window settings were reviewed. Slight compression deformity within the superior endplate of L2 is seen. This is likely old but is an interval change from prior exam. Scattered degenerative change within the endplates as well as apophyseal joints is noted. Degenerative change is also noted within both hips. No acute osseous finding is appreciated. Impression: 1. Dilated right kidney collecting system and proximal right ureter. Numerous nonobstructing calculi are seen within the right kidney. Two adjacent obstructing ureteral stones are noted within the proximal right ureter with both ureteral stones measuring approximately 5 mm. 2. Prior left nephrectomy. 3. Left adrenal mass. Small nodule posterior to the right kidney. These findings are suspicious for possible metastatic disease. 4. Single enlarged lymph node within the left side of the retroperitoneum measuring 1.8 cm possibly due to additional metastatic lesion. 5. Other findings believed to be chronic as noted above. Diagnostic code #9 I agree with preliminary report from [facility], finalized on 04/29/21, 3:37 PM CDT, code 1
== END 2021-04-29 17:15 ==
LOC: JD.ED 13:04
DX: N13.2 Hydronephrosis with renal and ureteral calculous obstruction (principal); I10 Essential (primary) hypertension; Z79.01 Long term (current) use of anticoagulants; Z79.899 Other long term (current) drug therapy; Z88.0 Allergy status to penicillin; Z86.718 Personal history of other venous thrombosis and embolism
CPT/HCPCS: 36415; 74176; 80053; 81001; 85025; 86140; 96374; 96375; 96376; 99285; J1170; J2405; 99284

== ENCOUNTER 2023-02-21 11:23 | Inpatient (IN) | payer MEDICARE, BC ==
[2023-02-21] MEDS ORDERED: Ondansetron 4 MG/2 ML SDV IVPUSH ONE (12:06)
[2023-02-21] MEDS ORDERED: Sodium Chloride 0.9% 1,000 ML IV ONE ×2 (12:06→13:50)
[2023-02-21] MEDS ORDERED: Sodium Chloride 0.9% 10 ML Syringe FLUSH PRN ×2 (12:06→16:02)
[2023-02-21] MEDS ORDERED: Loperamide 2 MG Cap PO ONE (12:06)
[2023-02-21] MEDS ORDERED: Ondansetron 4 MG Tab.DIS PO PRN (16:02)
[2023-02-21] MEDS ORDERED: Ondansetron 4 MG/2 ML SDV IV PRN (16:02)
[2023-02-21] MEDS ORDERED: Heparin Sodium 5,000 Units/ML Vial SUBCUT SCH (16:15)
[2023-02-21] MEDS: Sodium Chloride 0.9% 1,000 ML IV SCH (18:28)
[2023-02-21] MEDS: Acetaminophen 325 MG Tab PO PRN (19:36)
[2023-02-21] MEDS ORDERED: VANCOmycin 1.75 GM/350 ML 1.75 GM in Premix Bag 1 BAG IV ONE (20:30)
[2023-02-21] MEDS: Heparin Sodium 5,000 Units/ML Vial SUBCUT SCH (20:52)
[2023-02-21] MEDS: metroNIDAZOLE/Normal Saline 500 MG in Premix Bag 1 BAG IV SCH (20:53)
[2023-02-21] MEDS: Levofloxacin/Dextrose 5%-Water 750 MG in Premix Bag 1 BAG IV SCH (21:01)
[2023-02-22] MEDS: Sodium Chloride 0.9% 1,000 ML IV SCH (04:16)
[2023-02-22] MEDS: Heparin Sodium 5,000 Units/ML Vial SUBCUT SCH (04:19)
[2023-02-22] MEDS: metroNIDAZOLE/Normal Saline 500 MG in Premix Bag 1 BAG IV SCH ×4 (04:19→20:41)
[2023-02-22] MEDS: Acetaminophen 325 MG Tab PO PRN (09:28)
[2023-02-22] MEDS: oxyCODONE ER 10 MG TAB.ER PO SCH ×2 (10:50→20:42)
[2023-02-22] MEDS: oxyCODONE 5 MG Tab PO PRN ×2 (12:20→16:50)
[2023-02-22] MEDS: Levofloxacin/Dextrose 5%-Water 750 MG in Premix Bag 1 BAG IV SCH (20:42)
[2023-02-22] MEDS: VANCOmycin 1.5 GM/300 ML 1.5 GM in Premix Bag 1 BAG IV SCH (23:17)
[2023-02-23] MEDS: metroNIDAZOLE/Normal Saline 500 MG in Premix Bag 1 BAG IV SCH ×3 (05:29→20:38)
[2023-02-23] MEDS: oxyCODONE ER 10 MG TAB.ER PO SCH ×2 (08:36→20:46)
[2023-02-23] MEDS ORDERED: LORazepam 1 MG Tab PO PRN (08:42)
[2023-02-23] MEDS: oxyCODONE 5 MG Tab PO PRN ×3 (12:34→22:01)
[2023-02-23] MEDS: Levofloxacin/Dextrose 5%-Water 750 MG in Premix Bag 1 BAG IV SCH (21:58)
[2023-02-23] MEDS: VANCOmycin 1.5 GM/300 ML 1.5 GM in Premix Bag 1 BAG IV SCH (23:35)
[2023-02-24] MEDS: oxyCODONE 5 MG Tab PO PRN ×2 (02:54→09:37)
[2023-02-24] MEDS: metroNIDAZOLE/Normal Saline 500 MG in Premix Bag 1 BAG IV SCH (02:59)
[2023-02-24] MEDS: oxyCODONE ER 10 MG TAB.ER PO SCH (08:04)
[2023-02-24 08:43] VITALS: BP 96/59; PULSE 108
== END 2023-02-24 10:08 | DRG 394 ==
LOC: JD.ED 11:23 → JD.MS 16:02 → OBSVTOIN 02-22 13:15
PROVIDERS: ADMIT Hospitalist; ATTEND Hospitalist
DX: K61.1 Rectal abscess (principal); C64.9 Malignant neoplasm of unspecified kidney, except renal pelvis; C79.51 Secondary malignant neoplasm of bone; K92.1 Melena; C79.89 Secondary malignant neoplasm of other specified sites; D61.818 Other pancytopenia; Z51.5 Encounter for palliative care; N18.30 Chronic kidney disease, stage 3 unspecified; D63.1 Anemia in chronic kidney disease; Z66 Do not resuscitate; E86.0 Dehydration; Z20.822 Contact with and (suspected) exposure to COVID-19; D70.3 Neutropenia due to infection; I12.9 Hypertensive chronic kidney disease with stage 1 through stage 4 chronic kidney disease, or unspecified chronic kidney disease; Z90.5 Acquired absence of kidney; Z79.899 Other long term (current) drug therapy; Z82.49 Family history of ischemic heart disease and other diseases of the circulatory system; Z98.890 Other specified postprocedural states; Z88.0 Allergy status to penicillin; Z86.718 Personal history of other venous thrombosis and embolism
CPT/HCPCS: 36415; 74177; 74177-26; 80053; 80202; 83605; 83690; 83735; 85025; 86140; 87040; 87045; 87046; 87449; 87493; 87899; 96361; 96365; 96366; 96368; 96372; 96374; 99222; 99232; 99233; 99238; 99284; 99285-25; A9270-GY; G0378; J1644; J1956; J2405; J3370; J3490; J7030; U0002

== ENCOUNTER 2023-04-08 07:39 | Emergency (ER) | payer MEDICARE, BC ==
[2023-04-08] MEDS ORDERED: Haloperidol Lactate 5 MG/ML SDV IM ONE (08:08)
[2023-04-08] MEDS ORDERED: Diphtheria,Pertussis(Acell),Tetanus Vaccine 0.5 ML Syringe IM ONE ×2 (08:26→09:00)
[2023-04-08] MEDS ORDERED: Lidocaine 1% 10 ML MDV INJECT ONE (09:44)
[2023-04-08 10:18] VITALS: BP 122/70; PULSE 80
== END 2023-04-08 10:50 | disposition hospice, inpatient (51) ==
LOC: JD.ED 07:39
DX: S51.812A Laceration without foreign body of left forearm, initial encounter (principal); R44.3 Hallucinations, unspecified; I10 Essential (primary) hypertension; E03.9 Hypothyroidism, unspecified; Z88.0 Allergy status to penicillin; Z23 Encounter for immunization; W25.XXXA Contact with sharp glass, initial encounter
CPT/HCPCS: 12002; 73090; 90471; 90715; 96372; 99283; J1630; J3490